=== PATIENT | male | born 1955 | race Caucasian/White ===

== ENCOUNTER 2021-10-18 10:46 | Inpatient (IN) | payer MEDICARE, SELFPAY ==
[2021-10-18] VITALS (13 sets, daily range): BP systolic 122–159; BP diastolic 63–89; PULSE 75–111; RESP 16–22; TEMP 36.8–37.7; O2SAT 93–98; BMI 38.1; BMI 40.1
--- NOTE | 2021-10-18 11:08 | EDS_ITS ---
HPI HPI - GI History of Present Illness Chief Complaint: GI Bleed Narrative Narrative: Patient presents with rectal bleeding that he has had for the last few days. He relates remote history of bleeding ulcer 40 years ago. He does not take blood thinners and has not seen a primary care physician in quite some time. He picked up his grandkids from the airport on Thursday evening and Thursday morning, 2 days ago, he had his first episode of dark brown/bloody bowel movement. Since then, he states today he had a few episodes of bright red blood with bowel movements. He feels lightheaded. He denies any abdominal pain. No fevers or chills. No exacerbating or alleviating factors. He does not take any blood thinners or any medications currently. He states he is concerned because he has bright red blood per rectum with bowel movements. He denies other bleeding diathesis. [facility] Medical History (Updated 10/18/21 @ 14:06 by Horace Sandoval MD) Bleeding ulcer Home Medications NK 10/18/21 [History Last Taken Unknown] Allergy/AdvReac Type Severity Reaction Status Date / Time Penicillins Allergy Other Verified 10/18/21 10:50 Social History Smoking Status: Never smoker ROS ROS ED ROS Narrative Constitutional: No fever, no chills. HEENT: No sore throat. No neck pain. No loss of vision. No rhinorrhea. Cardiovascular: No chest pain. No palpitations. No pedal edema. Respiratory: No cough, no shortness of breath. Abdominal: No abdominal pain. No nausea. No vomiting. Bright red blood per rectum with bowel movements over the last few days. Genitourinary: No dysuria. No hematuria. Musculoskeletal: No myalgias. No arthralgias. Neurologic: No headaches. No dizziness. No lightheadedness. Skin: No rash. No change in color. Psychiatric: No depression. No anxiety. EXAM Physical Exam Narrative Exam Narrative: Afebrile. Vital signs noted. HEENT: Normocephalic. Atraumatic. PERRL, EOMI. Neck soft and supple. No point tenderness or step off. Cardiovascular: Regular rate and rhythm. No murmurs, rubs, or gallops appreciated. Respiratory: No tachypnea. Lungs clear to auscultation bilaterally. Gastrointestinal: Abdomen soft, nontender, with normoactive bowel sounds. No rebound or guarding. Neurological: Awake. Alert. Nonfocal, nonlateralizing. Skin: No rash. Normal color. No pallor. Musculoskeletal: No pedal edema. Full range of motion extremities. Const Vital Signs: 10/18/21 10:46 10/18/21 12:00 10/18/21 13:48 Temperature 98.5 F Temperature Source Temporal Pulse Rate 111 H 82 Pulse Rate [Lying] 82 Pulse Rate [Sitting (for 1 minute prior to obtaining)] 83 Pulse Rate [Standing (for 1 minute prior to obtaining)] 91 Respiratory Rate 18 22 H Blood Pressure 122/67 H 139/84 H Blood Pressure [Lying] 148/71 H Blood Pressure [Sitting (for 1 minute prior to obtaining)] 142/76 H Blood Pressure [Standing (for 1 minute prior to obtaining)] 138/72 H Blood Pressure Mean 85 102 Blood Pressure Mean [Lying] 96 Blood Pressure Mean [Sitting (for 1 minute prior to obtaining)] 98 Blood Pressure Mean [Standing (for 1 minute prior to obtaining)] 94 Pulse Ox 98 96 Oxygen Delivery Method Room Air Room Air MDM MDM MDM Narrative Medical decision making narrative: Basic laboratories will be checked. I do not feel that coagulation studies are indicated as he does not take Coumadin. Orthostatics are negative. Normal white count of 10.7. Hemoglobin low at 8.0. Electrolyte panel is grossly unremarkable except for chloride elevated at 112, BUN is also elevated at 29 with a creatinine of 1.13 consistent with GI bleeding. Urinalysis shows WBC count 10-25 with leukocyte Estrace 500. Negative ketones. This will be sent for culture and I will defer antibiotics. His chaperoned rectal examination did show dark blood with a small amount of bright red blood per rectum but no active hemorrhaging. I was able to discuss patient with Dr. Chris with gastroenterology who states that the patient can be admitted here. I then spoke with Dr. Deras for admission to the medical surgical floor. Patient is in stable condition. Lab Data Labs: Laboratory Results - last 24 hr 10/18/21 10/18/21 10/18/21 11:10 11:10 11:30 WBC 10.7 RBC 2.68 L Hgb 8.0 L Hct 24.2 L MCV 90.3 MCH 29.9 MCHC 33.1 RDW Std Deviation 43.1 RDW Coeff of [place] 13.2 Plt Count 207 MPV 10.0 Immature Gran % (Auto) 0.700 Neut % (Auto) 70.5 H Lymph % (Auto) 21.7 [place] % (Auto) 6.5 Eos % (Auto) 0.2 Baso % (Auto) 0.4 Absolute Neuts (auto) 7.6 Absolute Lymphs (auto) 2.33 Nucleated RBC % 0.3 Sodium 142 Potassium 3.8 Chloride 112 H Carbon Dioxide 22.0 Anion Gap 8 BUN 29 H Creatinine 1.13 Estim Creat Clear Calc 70.58 Est GFR (MDRD) Af Amer 83 Est GFR (MDRD) Non-Af 69 BUN/Creatinine Ratio 25.7 H Glucose 163 H Calcium 9.1 Total Bilirubin 0.40 AST 14 L ALT 23 Alkaline Phosphatase 45 Total Protein 6.6 Albumin 3.3 Globulin 3.3 Albumin/Globulin Ratio 1.0 Urine Color Yellow Urine Clarity Sl. Cloudy Urine pH 5.0 Ur Specific [place] 1.025 Urine Protein 30 H Urine Glucose (UA) Normal Urine Ketones Negative Urine Occult Blood 10 H Urine Nitrite Negative Urine Bilirubin 1 H Urine Urobilinogen Normal Ur Leukocyte Esterase 500 H Urine RBC 0-5 SEEN Urine WBC 10-25 SEEN Ur Squamous Epith Cells 0 SEEN Urine Bacteria 1+ Hyaline Casts 5-10 SEEN Urine Mucus 3+ Discharge Plan Dx/Rx/DC Orders Clinical Impression: GI bleeding, Anemia Disposition Disposition: Acute Care Hospital [facility]
[2021-10-18 11:19] LABS: Absolute Lymphocyte Count 2.33 X10^3/uL (0.83-4.51); Absolute Neutrophil Count 7.6 X10^3/uL (2.0-7.7); Basophil# 0.04 X10^3/uL; Basophil% 0.4 % (0-1); Eosinophil# 0.02 X10^3/uL; Eosinophils% 0.2 % (0-5); Hematocrit 24.2 % (40-54); Lymphocyte # 2.33 X10^3/ul (0.83-4.51); Lymphocyte % 21.7 % (19-41); Mean Corp Hgb Conc 33.1 g/dL (32-36); Mean Corpuscular Hgb 29.9 pg (27.0-32.0); Mean Corpuscular Volume 90.3 fL (80-94); Monocyte% 6.5 % (0-10); NRBC Flagged by Analyzer 0.3 % (0-5); Neutrophil # 7.56 X10^3/uL (2.7-7.7); Neutrophil % 70.5 % (47-70); Platelet Count 207 K/mm3 (150-450); RBC Distribution Width CV 13.2 % (11.6-14.6); RBC Distribution Width SD 43.1 fl (35.1-43.9); Red Blood Count 2.68 M/mm3 (4.6-6.2); White Blood Count 10.7 K/mm3 (4.4-11.0)
[2021-10-18] MEDS: 0.9% Normal Saline 1,000 ML 999 ML IV (11:29)
[2021-10-18 11:34] LABS: AST(SGOT) 14 U/L (15-37); Alanine Aminotransfer ALT/SGPT 23 U/L (16-61); Albumin, Serum 3.3 g/dL (3.2-5.0); Alkaline Phosphatase 45 U/L (45-117); Anion Gap 8 (5-15); BUN 29 mg/dL (7-18); BUN/Creat Ratio 25.7 RATIO (10-20); Calcium,Total 9.1 mg/dL (8.5-10.1); Chloride 112 mmol/L (98-107); Creatinine, Serum 1.13 mg/dL (0.70-1.30); EST Glomerular Filtration Rate 69 mL/min (>60); Est Glom Filt Rate - Afr Amer 83 mL/min (>60); Estimated Creatinine Clearance 70.58 ml/min; Globulin 3.3 g/dL (2.2-4.2); Glucose 163 mg/dL (74-106); Potassium 3.8 mmol/L (3.5-5.1); Protein, Total 6.6 g/dL (6.4-8.2); Sodium Level 142 mmol/L (136-145)
[2021-10-18 11:36] LABS: Squamous Epithelial Cells - UA 0 SEEN /hpf (0-5)
[2021-10-18 11:57] LABS: Color, Urine Yellow (Yellow); Glucose, Dipstick Normal (Normal); Ketone-Dipstick Negative (Negative); Leukocyte Esterase-Dipstick 500 /ul (Negative); Nitrite-Dipstick Negative (Negative); Occult Blood-Urine 10 /ul (Negative); Protein-Dipstick 30 mg/dl (Negative); Specific Gravity, Urine 1.025 (1.002-1.030); Urine Clarity Sl. Cloudy (Clear); Urine Urobilinogen Normal (Normal)
[2021-10-18 12:02] LABS: Urine Bilirubin Dipstick 1 mg/dL (Negative)
[2021-10-18 12:07] LABS: Hyaline Cast 5-10 SEEN /lpf (0-5); Mucous, Urine 3+ /hpf (<or=2+)
[2021-10-18 12:09] LABS: Red Blood Cells-Urine 0-5 SEEN /hpf (0-5); White Blood Cells 10-25 SEEN /hpf (0-5)
[2021-10-18 12:12] LABS: Bacteria 1+ /hpf (None Seen)
--- NOTE | 2021-10-18 14:44 | HP.PCM.HOS_ITS ---
[facility] - General General Date of Admission: 10/18/21 Chief Complaint: blood in stool HPI Narrative JAYE JAMES, is a 66 M who presents with 2-day history of blood in stool. Patient began started having blood in stool this past Thursday and has been intermittent but much more frequent as of late. States that it is dark and may have clots in it. Denies any NSAID use. He did have a history of a bleeding ulcer back in 1980 but has had none since. He has never had a colonoscopy. Patient was seen in the emergency room as he presented because he was just feeli ng weak. Patient normally is very active. His hemoglobin was noted to be 8. No prior labs to compare to. [facility] Medical History Bleeding ulcer Home Medications NK 10/18/21 [History Last Taken Unknown] Allergy/AdvReac Type Severity Reaction Status Date / Time Penicillins Allergy Other Verified 10/18/21 10:50 Social History (Updated 10/18/21 @ 14:[address] Praveen Deras DO) Smoking Status: Never smoker alcohol intake: never substance use type: does not use ROS ROS Narrative No dysuria. No hematuria. Nausea and dry heaves but no emesis. All review of systems were negative except as mentioned above in the history of present illness and the other review of systems. Vital Signs Vital Signs Vital Signs: 10/18/21 10:46 10/18/21 12:00 10/18/21 13:48 Temperature 36.9 C Temperature Source Temporal Pulse Rate 111 H 82 Pulse Rate [Lying] 82 Pulse Rate [Sitting (for 1 minute prior to obtaining)] 83 Pulse Rate [Standing (for 1 minute prior to obtaining)] 91 Respiratory Rate 18 22 H Blood Pressure 122/67 H 139/84 H Blood Pressure [Lying] 148/71 H Blood Pressure [Sitting (for 1 minute prior to obtaining)] 142/76 H Blood Pressure [Standing (for 1 minute prior to obtaining)] 138/72 H Blood Pressure Mean 85 102 Blood Pressure Mean [Lying] 96 Blood Pressure Mean [Sitting (for 1 minute prior to obtaining)] 98 Blood Pressure Mean [Standing (for 1 minute prior to obtaining)] 94 Pulse Ox 98 96 Oxygen Delivery Method Room Air Room Air Weight Weight: 127.459 kg Body Mass Index (BMI) 38.1 Physical Exam Const alert and no apparent distress HEENT normocephalic and head/scalp atraumatic Neck no lymphadenopathy and supple Resp normal respiratory effort, no retractions, no use of accessory muscles and clear to auscultation bilaterally Cardio regular rate, regular rhythm, S1 normal heart sound and S2 normal heart sound GI normal to inspection, nondistended, normoactive bowel sounds, soft to palpation, non-tender and non-distended Neuro oriented x3 Results Lab / Micro Data Attestation: I reviewed the patient's lab results. Result Diagrams: 10/18/21 11:10 10/18/21 11:10 Labs: Laboratory Results - last 24 hr 10/18/21 11:10: WBC 10.7, RBC 2.68 L, Hgb 8.0 L, Hct 24.2 L, MCV 90.3, MCH 29.9, MCHC 33.1, RDW Std Deviation 43.1, RDW Coeff of [place] 13.2, Plt Count 207, MPV 10.0, Immature Gran % (Auto) 0.700, Neut % (Auto) 70.5 H, Lymph % (Auto) 21.7, [place] % (Auto) 6.5, Eos % (Auto) 0.2, Baso % (Auto) 0.4, Absolute Neuts (auto) 7.6, Absolute Lymphs (auto) 2.33, Nucleated RBC % 0.3 10/18/21 11:10: Sodium 142, Potassium 3.8, Chloride 112 H, Carbon Dioxide 22.0, Anion Gap 8, BUN 29 H, Creatinine 1.13, Estim Creat Clear Calc 70.58, Est GFR (MDRD) Af Amer 83, Est GFR (MDRD) Non-Af 69, BUN/Creatinine Ratio 25.7 H, Glucose 163 H, Calcium 9.1, Total Bilirubin 0.40, AST 14 L, ALT 23, Alkaline Phosphatase 45, Total Protein 6.6, Albumin 3.3, Globulin 3.3, Albumin/Globulin Ratio 1.0 10/18/21 11:30: Urine Color Yellow, Urine Clarity Sl. Cloudy, Urine pH 5.0, Ur Specific [place] 1.025, Urine Protein 30 H, Urine Glucose (UA) Normal, Urine Ketones Negative, Urine Occult Blood 10 H, Urine Nitrite Negative, Urine Bilirubin 1 H, Urine Urobilinogen Normal, Ur Leukocyte Esterase 500 H, Urine RBC 0-5 SEEN, Urine WBC 10-25 SEEN, Ur Squamous Epith Cells 0 SEEN, Urine Bacteria 1+, Hyaline Casts 5-10 SEEN, Urine Mucus 3+ Micro: Microbiology 10/18/21 13:34 Stool Stool Occult Blood (DALI) - Final Occult Blood Positive Assessment & Plan Assessment/Plan (1) GI bleeding: QUALIFIERS: GI bleed type/associated pathology: unspecified gastrointestinal hemorrhage type Qualified Code(s): K92.2 - Gastrointestinal hemorrhage, unspecified PLAN: Unclear etiology but suspect PUD given his remote history of bleeding duodenal ulcer Plan: * IV pantoprazole 40 mg twice daily * GI consultation for EGD, notify Dr. Chris. (2) Anemia: PLAN: Secondary to above. Suspected acute blood loss. No baseline labs to compare to but given his symptomatology and his bleeding I suspect his hemoglobin is lower than his baseline Plan: * Monitor H&H every 6 hours for next 24 hours * Transfuse if hemoglobin less than 7 PLAN: Plan VTE prophylaxis with SCDs. Chemical prophylaxis contraindicated given the GI bleed. is present at bedside. All questions were answered.
[2021-10-18] MEDS: 0.9% Normal Saline 1,000 ML 150 ML IV (16:02)
[2021-10-18 17:19] LABS: Hematocrit 20.6 % (40-54); Hemoglobin 6.9 g/dL (13.0-16.5)
--- NOTE | 2021-10-18 17:44 | CON.PCM_ITS ---
Assessment & Plan Assessment/Plan (1) GI bleeding: QUALIFIERS: GI bleed type/associated pathology: unspecified gastrointestinal hemorrhage type Qualified Code(s): K92.2 - Gastrointestinal hemorrhage, unspecified PLAN: The differential diagnosis for his acute GI bleed could be an upper GI bleed secondary to peptic ulcer disease, AVM, neoplasia with rapid transit upper versus lower GI bleed secondary to AVMs, diverticular bleed, neoplasia, hemorr hoidal bleed. Patient undergoing EGD and colonoscopy with evaluation of the lower GI tract and upper GI tract. He was explained alternatives, risk, benefits including outstanding bleeding, infection, sepsis, perforation, need for surgery. He will have an ASA of 3. HPI Consult Data Date of Consult: 10/19/21 HPI Narrative Reason for Consultation: GI bleed HPI Narrative: JAYE JAMES, is a 66 M who presents with lower GI bleeding for the last few days.? He relates remote history of bleeding ulcer 40 years ago.? He does not take blood thinners and has not seen a primary care physician in quite some time.? He picked up his grandkids from the airport on Thursday evening and Thursday morning, 2 days ago, he had his first episode of dark brown/bloody bowel movement.? Since then, he states today he had a few episodes of bright red blood with bowel movements.? He feels lightheaded.? He denies any abdominal pain.? No fevers or chills.? No exacerbating or alleviating factors.? He does not take any blood thinners or any medications currently.? He states he is concerned because he has bright red blood per rectum with bowel movements.? He denies other bleeding diathesis. His BUN to creatinine ratio in the ED 60-1.1, his hemoglobin was 8 and currently it is down to 6.9. All 16 review of systems are negative except those pertinent positive mentioned HPI [facility] Medical History (Updated 10/19/21 @ 07:[address] Praveen Deras DO) Bleeding ulcer History of stress test Hypertension Irregular heartbeat Ulcer Home Medications NK 10/18/21 [History Last Taken Unknown] Allergy/AdvReac Type Severity Reaction Status Date / Time Penicillins Allergy Other Verified 10/18/21 10:50 Social History (Updated 10/18/21 @ 14:[address] Praveen Deras DO) Smoking Status: Never smoker alcohol intake: never substance use type: does not use ROS ROS Narrative No dysuria. No hematuria. Nausea and dry heaves but no emesis. All review of systems were negative except as mentioned above in the history of present illness and the other review of systems. Physical Exam Const alert and no apparent distress HEENT normocephalic and head/scalp atraumatic Neck no lymphadenopathy and supple Resp normal respiratory effort, no retractions, no use of accessory muscles and clear to auscultation bilaterally Cardio regular rate, regular rhythm, S1 normal heart sound and S2 normal heart sound GI normal to inspection, nondistended, normoactive bowel sounds, soft to palpation, non-tender and non-distended Neuro oriented x3 Lab / Micro Data Result Diagrams: 10/19/21 05:40 10/19/21 05:40 Labs: Laboratory Results - last 24 hr 10/18/21 11:10: WBC 10.7, RBC 2.68 L, Hgb 8.0 L, Hct 24.2 L, MCV 90.3, MCH 29.9, MCHC 33.1, RDW Std Deviation 43.1, RDW Coeff of [place] 13.2, Plt Count 207, MPV 10.0, Immature Gran % (Auto) 0.700, Neut % (Auto) 70.5 H, Lymph % (Auto) 21.7, [place] % (Auto) 6.5, Eos % (Auto) 0.2, Baso % (Auto) 0.4, Absolute Neuts (auto) 7.6, Absolute Lymphs (auto) 2.33, Nucleated RBC % 0.3 10/18/21 11:10: Sodium 142, Potassium 3.8, Chloride 112 H, Carbon Dioxide 22.0, Anion Gap 8, BUN 29 H, Creatinine 1.13, Estim Creat Clear Calc 70.58, Est GFR (MDRD) Af Amer 83, Est GFR (MDRD) Non-Af 69, BUN/Creatinine Ratio 25.7 H, Glucose 163 H, Calcium 9.1, Total Bilirubin 0.40, AST 14 L, ALT 23, Alkaline Phosphatase 45, Total Protein 6.6, Albumin 3.3, Globulin 3.3, Albumin/Globulin R atio 1.0 10/18/21 11:30: Urine Color Yellow, Urine Clarity Sl. Cloudy, Urine pH 5.0, Ur Specific [place] 1.025, Urine Protein 30 H, Urine Glucose (UA) Normal, Urine Ketones Negative, Urine Occult Blood 10 H, Urine Nitrite Negative, Urine Bilirubin 1 H, Urine Urobilinogen Normal, Ur Leukocyte Esterase 500 H, Urine RBC 0-5 SEEN, Urine WBC 10-25 SEEN, Ur Squamous Epith Cells 0 SEEN, Urine Bacteria 1+, Hyaline Casts 5-10 SEEN, Urine Mucus 3+ 10/18/21 17:10: Hgb 6.9 L, Hct 20.6 L Micro: Microbiology 10/18/21 13:34 Stool Stool Occult Blood (DALI) - Final Occult Blood Positive Charges/Coding Visit Charges Inpatient E&M: 59780 Init Hosp L2
[2021-10-18] MEDS: Bisacodyl 5 MG Tablet 20 MG PO (19:51)
[2021-10-18] MEDS: Electrolyte Solution/Peg's 4000 ML PO (19:52)
[2021-10-18] MEDS: Ondansetron 4 MG/2 ML Vial IV (23:55)
[2021-10-18] MEDS: 0.9% Saline Lock 10 ML Syringe IV (23:56)
[2021-10-19] VITALS (14 sets, daily range): BP systolic 110–162; BP diastolic 49–84; PULSE 64–86; RESP 16–18; TEMP 36.2–37.3; O2SAT 87–99; BMI 40.1
--- NOTE | 2021-10-19 | ESO_PTH ---
PATIENT: JAYE JAMES LOC: MS3 U#:[id number] AGE/SX: 66/M ROOM: ME312 RE10/18/[address]: Dr. Praveen Deras, : 1955 BED: 1 DIS: 10/19/2021 SPEC #: [id number] RECD: 10/19/21 10:29 STATUS: LUMA BEASLEYVeronique #: [id number] LAURA: 10/19/21 00:[address]: Ellis Chris DEPT: SURGICAL PATHOLOGY RECD BY: Vidal Calloway ENTERED: 10/21/21 12:30 SP TYPE: ESOPH BX OTHR DR: Dr. Praveen Deras, DO No Primary Care Phys Tissues: A - Esophagus, NOS B - Ascending colon C - SPLENIC FLEXURE Procedures: Special Stain Group II Surgery Specimen Level IV Alcian Blue/PAS (control) Comments: @ Ordering doctor for SUIV edited from to @ by DERREK at 10/21/21 1441 @ Submitting doctor edited from to @ by RGOOD at 10/21/21 1445 HEADER OPERATION: Colonoscopy with polypectomy, EGD with biopsy (MAC) PRE-OP DIAGNOSIS: GI bleeding TISSUE SUBMITTED: A ? Distal esophagus, B - Ascending colon, C ? Splenic flexure MICROSCOPIC DIAGNOSIS A. 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 Chronic inflammation. Negative for dysplasia. See comment. B. Ascending colon, biopsy: Fragments of tubular adenoma. Fragments of fecal material. C. Splenic flexure, biopsy: Fragments of tubular adenoma. Fragments of fecal material. SJ:abad 10/22/2021 COMMENT A. Alcian blue/PAS stain with matched control is used in the evaluation of the specimen. Immunohistochemistry ([id number]) for P53 and Ki-67 will be performed and results will be reported separately. MICROSCOPIC DESCRIPTION Slides are reviewed. GROSS DESCRIPTION A - Received in fixative is one container labeled with the patient's name and designated distal esophagus. The specimen consists of multiple irregular fragments of light diana soft tissue that in aggregate measure 0.8 x 0.3 x 0.1 cm. The specimen is totally submitted in one cassette. B - Received in fixative is one container labeled with the patient's name and designated ascending colon. The specimen consists of multiple irregular fragments of diaan soft tissue mixed with blood clot and fecal material that in aggregate measure 2 x 2.5 x 0.3 cm. The specimen is totally submitted in one cassette. C - Received in fixative is one container labeled with the patient's name and designated splenic flexure. The specimen consists of multiple irregular fragments of light diana soft tissue that in aggregate measure 1.8 x 0.5 x 0.2 cm. The specimen is totally submitted in one cassette. / SJ:rg 10/21/2021 TC:1 CPT: 79230 x3, 70116
--- NOTE | 2021-10-19 | IMM_PTH ---
PATIENT: JAYE JAMES LOC: MS3 U#:[id number] AGE/SX: 66/M ROOM: VT312 RE10/18/[address]: Dr. Praveen Deras, : 1955 BED: 1 DIS: 10/19/2021 SPEC #: [id number] RECD: 10/22/21 12:47 STATUS: LUMA REVeronique #: [id number] LAURA: 10/19/21 00:[address]: Ellis Chris DEPT: IMMUNOHISTOCHEMISTRY RECD BY: Teresita Dean ENTERED: 10/22/21 12:49 SP TYPE: IMMUNO OTHR DR: Dr. Praveen Deras, DO No Primary Care Phys Tissues: A - Esophageal mucous membrane Procedures: P53 (initial) KI-67 (add) PHYSICIAN & INSTITUTION [place] [id number] SPECIMEN INFORMATION: Tissue Source: A ? Distal esophagus Clinical Info: GI bleeding Specimen Number: [id number] CPT code: 66963, 99854 METHODOLOGY: Deparaffinized sections of prefer/formalin-fixed tissue or PAP/DQ stained slides are incubated with monoclonal/polyclonal antibodies/oligonucleotide probes. Localization is made via biotin free immunoperoxidase method. Appropriate controls are performed and reacted as expected. Results on target cell population are indicated in the following table: RESULTS: ANTIBODY / CLONE RESULT Block A P53 (DO-7) negative Ki-67 (30-9) positive, very low These tests were developed and their performance characteristics determined by [facility]. They may not have been cleared or approved by the U.S. Food and Drug Administration. The FDA has determined that such clearance or approval is not necessary. The above immunohistochemical/dualISH markers are ordered and reviewed by the Pathologist. INTERPRETATION: A. Distal esophagus, biopsy: Negative for dysplasia. ROHIT:abad 10/23/2021
[2021-10-19 01:08] LABS: Hematocrit 20.7 % (40-54)
[2021-10-19] MEDS: 0.9% Normal Saline 1,000 ML 150 ML IV (02:02)
--- NOTE | 2021-10-19 05:55 | EKG12_ITS ---
Test Reason : AM EKG Blood Pressure : / mmHG Vent. Rate : 076 BPM Atrial Rate : 076 BPM P-R Int : 170 ms QRS Dur : 104 ms QT Int : 412 ms P-R-T Axes : 047 003 162 degrees QTc Int : 463 ms Normal sinus rhythm T wave abnormality, consider lateral ischemia Abnormal ECG Confirmed by REHANA NOYOLA, EVAN ([id number]), news videotape editor GINA DOBSON ([id number]) on 10/22/2021 1:09:49 PM Referred By: DR AHUJA Confirmed By:EVAN KIMBALL MD
[2021-10-19 06:29] LABS: Absolute Lymphocyte Count 2.95 X10^3/uL (0.83-4.51); Absolute Neutrophil Count 6.2 X10^3/uL (2.0-7.7); Basophil# 0.03 X10^3/uL; Basophil% 0.3 % (0-1); Eosinophil# 0.09 X10^3/uL; Eosinophils% 0.9 % (0-5); Hematocrit 19.7 % (40-54); Hemoglobin 6.4 g/dL (13.0-16.5); Lymphocyte # 2.95 X10^3/ul (0.83-4.51); Lymphocyte % 28.6 % (19-41); Mean Corp Hgb Conc 32.5 g/dL (32-36); Mean Corpuscular Hgb 29.9 pg (27.0-32.0); Mean Corpuscular Volume 92.1 fL (80-94); Mean Platelet Vol. 10.2 fl (6.2-12.0); Monocyte# 0.97 X10^3/uL; Monocyte% 9.4 % (0-10); NRBC Flagged by Analyzer 0.4 % (0-5); Neutrophil # 6.18 X10^3/uL (2.7-7.7); Neutrophil % 59.8 % (47-70); Platelet Count 161 K/mm3 (150-450); RBC Distribution Width CV 13.8 % (11.6-14.6); RBC Distribution Width SD 45.3 fl (35.1-43.9); Red Blood Count 2.14 M/mm3 (4.6-6.2); White Blood Count 10.3 K/mm3 (4.4-11.0)
[2021-10-19 06:41] LABS: International Normalized Ratio 1.2; Prothrombin Time (Protime)PT. 15.2 SECONDS (11.7-14.9)
[2021-10-19 06:42] LABS: Partial Thromboplast Time 26.9 Seconds (24.1-36.2)
[2021-10-19 06:54] LABS: Anion Gap 3 (5-15); BUN 20 mg/dL (7-18); BUN/Creat Ratio 23.9 RATIO (10-20); Calcium,Total 7.9 mg/dL (8.5-10.1); Chloride 113 mmol/L (98-107); Creatinine, Serum 0.84 mg/dL (0.70-1.30); EST Glomerular Filtration Rate 98 mL/min (>60); Est Glom Filt Rate - Afr Amer 118 mL/min (>60); Estimated Creatinine Clearance 92.13 ml/min; Glucose 114 mg/dL (74-106); Potassium 3.9 mmol/L (3.5-5.1); Sodium Level 142 mmol/L (136-145)
--- NOTE | 2021-10-19 06:57 | NURSING ---
Pt has been passing a lot of blood with his bowel prep. It is dark red. Hgb dropped. Physican notified and another unit of blood ordered.
--- NOTE | 2021-10-19 07:11 | PN.HOSP_ITS ---
Subjective Subjective Before the colonoscopy patient was still having hematochezia. Since has had no further hematochezia. Objective Data Objective Data Vital Signs: Vital Signs Temp Pulse Resp BP Pulse Ox O2 Del Method 36.9 C 69 18 162/65 H 94 Room Air 10/19/21 05:30 10/19/21 05:30 10/19/21 05:30 10/19/21 05:30 10/19/21 05:30 10/19/21 05:30 Oxygen Delivery Method Room Air Weight: 130.379 kg Body Mass Index (BMI) 40.1 Intake & Output: Intake and Output for Last 24 Hours 10/17/21 10/18/21 10/19/21 23:59 23:59 23:59 Intake Total 3232.5 / 3342.5 387.5 / 387.5 Balance 3232.5 / 3342.5 387.5 / 387.5 Lab / Micro Data Result Diagrams: 10/19/21 05:40 10/19/21 05:40 Labs: Laboratory Results - last 24 hr 10/18/21 11:10: WBC 10.7, RBC 2.68 L, Hgb 8.0 L, Hct 24.2 L, MCV 90.3, MCH 29.9, MCHC 33.1, RDW Std Deviation 43.1, RDW Coeff of [place] 13.2, Plt Count 207, MPV 10.0, Immature Gran % (Auto) 0.700, Neut % (Auto) 70.5 H, Lymph % (Auto) 21.7, Gilli[place] % (Auto) 6.5, Eos % (Auto) 0.2, Baso % (Auto) 0.4, Absolute Neuts (auto) 7.6, Absolute Lymphs (auto) 2.33, Nucleated RBC % 0.3 10/18/21 11:10: Sodium 142, Potassium 3.8, Chloride 112 H, Carbon Dioxide 22.0, Anion Gap 8, BUN 29 H, Creatinine 1.13, Estim Creat Clear Calc 70.58, Est GFR (MDRD) Af Amer 83, Est GFR (MDRD) Non-Af 69, BUN/Creatinine Ratio 25.7 H, Glucose 163 H, Calcium 9.1, Total Bilirubin 0.40, AST 14 L, ALT 23, Alkaline Phosphatase 45, Total Protein 6.6, Albumin 3.3, Globulin 3.3, Albumin/Globulin Ratio 1.0 10/18/21 11:30: Urine Color Yellow, Urine Clarity Sl. Cloudy, Urine pH 5.0, Ur Specific [place] 1.025, Urine Protein 30 H, Urine Glucose (UA) Normal, Urine Ketones Negative, Urine Occult Blood 10 H, Urine Nitrite Negative, Urine Bilirubin 1 H, Urine Urobilinogen Normal, Ur Leukocyte Esterase 500 H, Urine RBC 0-5 SEEN, Urine WBC 10-25 SEEN, Ur Squamous Epith Cells 0 SEEN, Urine Bacteria 1+, Hyaline Casts 5-10 SEEN, Urine Mucus 3+ 10/18/21 17:10: Hgb 6.9 L, Hct 20.6 L 10/18/21 17:45: Blood Type A POSITIVE, Antibody Screen NEGATIVE, Crossmatch See Detail 10/19/21 00:48: Hgb 7.0 L, Hct 20.7 L 10/19/21 05:40: WBC 10.3, RBC 2.14 L, Hgb 6.4 L, Hct 19.7 L, MCV 92.1, MCH 29.9, MCHC 32.5, RDW Std Deviation 45.3 H, RDW Coeff of [place] 13.8, Plt Count 161, MPV 10.2, Immature Gran % (Auto) 1.000 H, Neut % (Auto) 59.8, Lymph % (Auto) 28.6, [place] % (Auto) 9.4, Eos % (Auto) 0.9, Baso % (Auto) 0.3, Absolute Neuts (auto) 6.2, Absolute Lymphs (auto) 2.95, Nucleated RBC % 0.4 10/19/21 05:40: Sodium 142, Potassium 3.9, Chloride 113 H, Carbon Dioxide 26.0, Anion Gap 3 L, BUN 20 H, Creatinine 0.84, Estim Creat Clear Calc 92.13, Est GFR (MDRD) Af Amer 118, Est GFR (MDRD) Non-Af 98, BUN/Creatinine Ratio 23.9 H, Glucose 114 H, Calcium 7.9 L 10/19/21 05:40: PT 15.2 H, INR 1.2, APTT 26.9 Micro: Microbiology 10/18/21 13:34 Stool Stool Occult Blood (DALI) - Final Occult Blood Positive Physical Exam Const alert and no apparent distress Resp normal respiratory effort, no retractions, no use of accessory muscles and clear to auscultation bilaterally Cardio regular rate, regular rhythm, S1 normal heart sound and S2 normal heart sound GI normal to inspection, nondistended, normoactive bowel sounds Assessment & Plan Assessment/Plan (1) GI bleeding: QUALIFIERS: GI bleed type/associated pathology: unspecified gastrointestinal hemorrhage type Qualified Code(s): K92.2 - Gastrointestinal hemorrhage, unspecified PLAN: EGD was unremarkable Colonoscopy showed diverticulosis in the rectosigmoid colon, 10 1 to 2 mm polyps in the sigmoid colon that was removed with a hot snare. 3 bleeding angiodysplastic lesions that were treated with heater probe. Due to the angiodysplastic lesions which were treated with heater probe. If no further bleeding and hemoglobin stable patient can be discharged. (2) Anemia: QUALIFIERS: Anemia type: other cause Qualified Code(s): D64.89 - Other specified anemias PLAN: Secondary to above. Acute blood loss. No baseline labs to compare to but given his symptomatology and his bleeding I suspect his hemoglobin is lower than his baseline Plan: * Monitor H&H every 6 hours for next 24 hours * Transfuse 1 unit on the . * Hemoglobin 6.4 and will transfuse another. * We will start the patient on iron PLAN: Plan VTE prophylaxis with SCDs. Chemical prophylaxis contraindicated given the GI bleed. is present at bedside. All questions were answered. Plan is to monitor the patient if his hemoglobin remained stable and no further bleeding then he can be discharged home and follow-up with gastroenterology as outpatient. Charges/Coding Visit Charges Inpatient E&M: 42918 Subs Hosp L2
--- NOTE | 2021-10-19 09:16 | OP.CCLET_ITS ---
12/05/2021 No Primary Care Physician Re : Upper GI endoscopy procedure for Chris Major Dear Care Physician This procedure was performed on Tuesday, October 19, 2021. My impressions and recommendations are as follows: Impressions : - Z-line irregular, 39 cm from the incisors. Biopsied. - Small hiatal hernia. - No gross lesions in the second portion of the duodenum. Recommendations : - Discharge patient to home. - Resume previous diet. - Continue present medications. - Await pathology results. - Repeat upper endoscopy in 1 year for surveillance. - Return to GI office in 2 weeks. My findings are described in the full procedure note, which is enclosed. If I can be of further assistance, please feel free to contact me at . Sincerely, Ellis Chris, 10/19/2021 9:16:02 AM This report has been signed electronically.
--- NOTE | 2021-10-19 09:16 | OP.EGD_ITS ---
Patient Name: Chris Major Procedure Date: 10/19/2021 7:25 AM Date of : 1955 Age: 66 Procedure: Upper GI endoscopy Indications: Iron deficiency anemia, Hematochezia, Melena Providers: Ellis Chris DO Medicines: Monitored Anesthesia Care Patient Profile: This is a 66 year old male. Refer to note in patient chart for documentation of history and physical. Patient has symptoms of acute heartburn and acute nausea. Complications: No immediate complications. Procedure: Pre-Anesthesia Assessment: - Prior to the procedure, a History and Physical was performed, and patient medications and allergies were reviewed. The risks and benefits of the procedure and the sedation options and risks were discussed with the patient. All questions were answered and informed consent was obtained. Patient identification and proposed procedure were verified by the physician in the pre-procedure area. Mental Status Examination: alert and oriented. Airway Examination: normal oropharyngeal airway and neck mobility. Respiratory Examination: clear to auscultation. CV Examination: normal. Prophylactic Antibiotics: The patient does not require prophylactic antibiotics. Prior Anticoagulants: The patient has taken no previous anticoagulant or antiplatelet agents. ASA Grade Assessment: II - A patient with mild systemic disease. After reviewing the risks and benefits, the patient was deemed in satisfactory condition to undergo the procedure. The anesthesia plan was to use moderate sedation / analgesia (conscious sedation). Immediately prior to administration of medications, the patient was re-assessed for adequacy to receive sedatives. The heart rate, respiratory rate, oxygen saturations, blood pressure, adequacy of pulmonary ventilation, and response to care were monitored throughout the procedure. The physical status of the patient was re-assessed after the procedure. After obtaining informed consent, the endoscope was passed under direct vision. Throughout the procedure, the patient's blood pressure, pulse, and oxygen saturations were monitored continuously. The was introduced through the mouth, and advanced to the second part of duodenum. The upper GI endoscopy was accomplished without difficulty. The patient tolerated the procedure well. Scope In: 8:09:03 AM Scope Out: 8:13:38 AM Total Procedure Duration Time 0 hours 4 minutes 35 seconds Findings: The Z-line was irregular and was found 39 cm from the incisors. Biopsies were taken with a cold forceps for histology. Verification of patient identification for the specimen was done. Estimated blood loss was minimal. A small hiatal hernia was present. No other significant abnormalities were identified in a careful examination of the stomach. The cardia and gastric fundus were normal on retroflexion. No gross lesions were noted in the second portion of the duodenum. Impression: - Z-line irregular, 39 cm from the incisors. Biopsied. - Small hiatal hernia. - No gross lesions in the second portion of the duodenum. Recommendation: - Discharge patient to home. - Resume previous diet. - Continue present medications. - Await pathology results. - Repeat upper endoscopy in 1 year for surveillance. - Return to GI office in 2 weeks. Procedure Code(s): --- Professional --- 01324, Esophagogastroduodenoscopy, flexible, transoral; with biopsy, single or multiple CPT copyright 2017 [employer]. All rights reserved. The codes documented in this report are preliminary and upon reed or wind instrument repairer review may be revised to meet current compliance requirements. Ellis Chris DO 10/19/2021 9:16:02 AM This report has been signed electronically. Number of Addenda: 1 Note Initiated On: 10/19/2021 7:25 AM Addendum Number: 1 Addendum Date: 12/05/2021 6:11:43 AM MAC was used as sedation for this procedure. Ellis Chris DO 12/05/2021 6:11:47 AM This report has been signed electronically.
--- NOTE | 2021-10-19 09:21 | OP.COLON_ITS ---
Patient Name: Chris Major Procedure Date: 10/19/2021 8:13 AM Date of : 1955 Age: 66 Procedure: Colonoscopy Indications: This is the patient's first colonoscopy, Hematochezia Providers: Ellis Chris DO Medicines: Monitored Anesthesia Care Patient Profile: This is a 66 year old male. Refer to note in patient chart for documentation of history and physical. Patient has symptoms of acute heartburn and acute nausea. Last Colonoscopy: none. The patient's first colonoscopy is today. Complications: No immediate complications. Procedure: Pre-Anesthesia Assessment: - Prior to the procedure, a History and Physical was performed, and patient medications and allergies were reviewed. The risks and benefits of the procedure and the sedation options and risks were discussed with the patient. All questions were answered and informed consent was obtained. Patient identification and proposed procedure were verified by the physician in the pre-procedure area. Mental Status Examination: alert and oriented. Airway Examination: normal oropharyngeal airway and neck mobility. Respiratory Examination: clear to auscultation. CV Examination: normal. Prophylactic Antibiotics: The patient does not require prophylactic antibiotics. Prior Anticoagulants: The patient has taken no previous anticoagulant or antiplatelet agents. ASA Grade Assessment: II - A patient with mild systemic disease. After reviewing the risks and benefits, the patient was deemed in satisfactory condition to undergo the procedure. The anesthesia plan was to use moderate sedation / analgesia (conscious sedation). Immediately prior to administration of medications, the patient was re-assessed for adequacy to receive sedatives. The heart rate, respiratory rate, oxygen saturations, blood pressure, adequacy of pulmonary ventilation, and response to care were monitored throughout the procedure. The physical status of the patient was re-assessed after the procedure. After I obtained informed consent, the scope was passed under direct vision. Throughout the procedure, the patient's blood pressure, pulse, and oxygen saturations were monitored continuously. The Colonoscope was introduced through the anus and advanced to the terminal ileum. The colonoscopy was performed without difficulty. The patient tolerated the procedure well. The quality of the bowel preparation was good. Scope In: 8:17:45 AM Scope Out: 9:08:18 AM Total Procedure Duration Time 0 hours 50 minutes 33 seconds Findings: The perianal and digital rectal examinations were normal. Many small-mouthed diverticula were found in the recto-sigmoid colon, sigmoid colon and descending colon. Ten sessile polyps were found in the sigmoid colon, splenic flexure and ascending colon. The polyps were 1 to 2 mm in size. These polyps were removed with a hot snare. Resection and retrieval were complete. Verification of patient identification for the specimen was done. Estimated blood loss was minimal. Three medium-sized localized angiodysplastic lesions with bleeding were found in the sigmoid colon. Coagulation for hemostasis using heater probe was successful. Estimated blood loss was minimal. Impression: - Diverticulosis in the recto-sigmoid colon, in the sigmoid colon and in the descending colon. - Ten 1 to 2 mm polyps in the sigmoid colon, at the splenic flexure and in the ascending colon, removed with a hot snare. Resected and retrieved. - Three bleeding colonic angiodysplastic lesions. Treated with a heater probe. Recommendation: - Discharge patient to home. - Resume previous diet. - Continue present medications. - Await pathology results. - Repeat colonoscopy in 1 year for surveillance. Procedure Code(s): --- Professional --- 29010, 59, Colonoscopy, flexible; with control of bleeding, any method 14402, Colonoscopy, flexible; with removal of tumor(s), polyp(s), or other lesion(s) by snare technique CPT copyright 2017 [employer]. All rights reserved. The codes documented in this report are preliminary and upon branch retail executive review may be revised to meet current compliance requirements. Ellis Chris DO 10/19/2021 9:20:31 AM This report has been signed electronically. Number of Addenda: 1 Note Initiated On: 10/19/2021 8:13 AM Addendum Number: 1 Addendum Date: 12/05/2021 6:11:55 AM MAC was used as sedation for this procedure. Ellis Chris DO 12/05/2021 6:11:58 AM This report has been signed electronically.
--- NOTE | 2021-10-19 09:21 | OP.CCLET_ITS ---
12/05/2021 No Primary Care Physician Re : Colonoscopy procedure for Chris Major Dear Care Physician This procedure was performed on Tuesday, October 19, 2021. My impressions and recommendations are as follows: Impressions : - Diverticulosis in the recto-sigmoid colon, in the sigmoid colon and in the descending colon. - Ten 1 to 2 mm polyps in the sigmoid colon, at the splenic flexure and in the ascending colon, removed with a hot snare. Resected and retrieved. - Three bleeding colonic angiodysplastic lesions. Treated with a heater probe. Recommendations : - Discharge patient to home. - Resume previous diet. - Continue present medications. - Await pathology results. - Repeat colonoscopy in 1 year for surveillance. My findings are described in the full procedure note, which is enclosed. If I can be of further assistance, please feel free to contact me at . Sincerely, Ellis Chris, 10/19/2021 9:20:31 AM This report has been signed electronically.
--- NOTE | 2021-10-19 11:35 | CASEMGMT ---
HARI HECK Assessment: Face to Face with pt for initial transition planning/care coordination assessment. RN UMANG introduced self and role at [facility], pt voices understanding and consents to assessment. Pt is A/O x4 and answers all questions appropriately at this time. Pt lying in bed receiving blood. Care providers, pharmacy, and demographics verified/updated. Admitting Dx: GIB, Anemia PCP: Pt does not have PCP, provided with local healthcare directory. Pt states his got him papers to see if would accept him but he has not completed them yet. Specialists:Pt denies. Preferred Pharmacy: [facility] Insurance: MMO [facility] Prescription Benefit: yes LW/HPOA: Pt denies having a LW/DPOA and denies need for info regarding AD. Provided pt with [employer] card. LNOK: Swetha Major, Living Arrangements: Pt lives with in a two story house with 4 steps to enter with a rail. Pt reports he is I in ADL's and denies concerns at home. Transportation: Pt drives self and denies concerns with transportation. DME/HHC/SNF: Pt denies having any DME, previous HHC or SNF stays. Pt states no concerns with going home at time of dc. Pt states no further concerns/needs. CM to follow. Advised pt to ask CM if any further question/concerns/needs arise, voices understanding. Pt Goal: Home Plan: Home
--- NOTE | 2021-10-19 12:36 | DCINST_ITS ---
Discharge Instructions Diet Discharge Diet: No restrictions Activity Discharge Activity: Return to Normal Activity (Slowly ease back into your normal routine over a matter of several days.) Dressing / Incision Call your doctor if you observe: Fainting spells and - (Blood in stools. Dark tarry stools.) Follow Up Care Test Results: Test results from this visit will be discussed in further detail at your follow- up appointment, if applicable. Discharge Plan Admission Admit Date/Time: 10/18/21 14:41 Primary Reason for Your Visit: Acute blood loss anemia. Lower gastrointestinal bleeding. Attending Provider: Praveen Deras Primary Care Provider: Care Physician,Anna Primary Discharge Orders/Prescriptions Prescriptions: New ferrous sulfate [FeroSul] 325 mg (65 mg iron) Tablet 325 mg PO LUNCH Qty: 14 0RF Referrals / Follow Up: Care Physician,No Primary [Primary Care Provider] - NOT,DEFINED [Non-Staff] - Aries,Ellis, [Med Staff - Active Staff] - Within 1 Month Disposition Disposition (needs filled in before D/C Order can be placed): Home, Self Care
[2021-10-19] MEDS: Ferrous Sulfate 325 MG Tablet PO (13:24)
--- NOTE | 2021-10-19 14:12 | DS.PCM_ITS ---
Providers Date of Admission: 10/18/21 Primary Care Physician: Anna Primary Care Phys Consultations 10/18/21 15:03 Consult: Gastroenterology Routine Consulting Provider: Talya Gastroentercarline Reason for Consult: GI bleed EMERGENT Consult: No MD Notified: Yes Date Notified: 10/18/21 Time Notified: 14:43 Method of Notification: Text Reason For Visit: GI BLEED, ANEMIA Diagnosis Discharge Diagnosis (1) GI bleeding: Status: Acute Code(s): K92.2 - Gastrointestinal hemorrhage, unspecified Qualifiers: GI bleed type/associated pathology: unspecified gastrointestinal hemorrhage type Qualified Code(s): K92.2 - Gastrointestinal hemorrhage, unspecified Plan: EGD was unremarkable Colonoscopy showed diverticulosis in the rectosigmoid colon, 10 1 to 2 mm polyps in the sigmoid colon that was removed with a hot snare. 3 bleeding angiodysplastic lesions that were treated with heater probe. Due to the angiodysplastic lesions which were treated with heater probe. If no further bleeding and hemoglobin stable patient can be discharged. (2) Anemia: Status: Acute Code(s): D64.9 - Anemia, unspecified Qualifiers: Anemia type: other cause Qualified Code(s): D64.89 - Other specified anemias Plan: Secondary to above. Acute blood loss. No baseline labs to compare to but given his symptomatology and his bleeding I suspect his hemoglobin is lower than his baseline Plan: * Monitor H&H every 6 hours for next 24 hours * Transfuse 1 unit on the . * Hemoglobin 6.4 and will transfuse another. * We will start the patient on iron Plan VTE prophylaxis with SCDs. Chemical prophylaxis contraindicated given the GI bleed. is present at bedside. All questions were answered. Plan is to monitor the patient if his hemoglobin remained stable and no further bleeding then he can be discharged home and follow-up with gastroenterology as outpatient. Medications at Discharge Home Medications ferrous sulfate 325 mg (65 mg iron) tablet (FeroSul) 325 mg PO LUNCH #14 tabs 10/19/21 Hospital Course Operations None Procedures Colonoscopy and EGD Summary of Care Provided Minutes Spent on Discharge: 35 Hospital Course: This is a six 6-year-old male presents with GI bleed. Initially was thought to be due to peptic ulcer disease given his remote history of PUD but EGD was negative. Colonoscopy showed bleeding angiodysplastic lesions in his colon which were cauterized. Patient did require 3 units of packed red blood cells during the course of his hospitalization. He has not had any further hematochezia since his colonoscopy. Patient will be discharged home and he will be prescribed a 2-week course of ferrous sulfate. Patient advised to return if he has any further bleeding or melena. Weight / BMI Weight Weight: 130.379 kg Body Mass Index (BMI) 40.1 ABG / Lab / Microbiology Data Result Diagrams: 10/19/21 12:00 10/19/21 05:40 Laboratory: Laboratory Results - last 24 hr 10/18/21 17:10: Hgb 6.9 L, Hct 20.6 L 10/18/21 17:45: Blood Type A POSITIVE, Antibody Screen NEGATIVE, Crossmatch See Detail 10/18/21 17:45: Crossmatch See Detail 10/18/21 17:45: Crossmatch See Detail 10/19/21 00:48: Hgb 7.0 L, Hct 20.7 L 10/19/21 05:40: WBC 10.3, RBC 2.14 L, Hgb 6.4 L, Hct 19.7 L, MCV 92.1, MCH 29.9, MCHC 32.5, RDW Std Deviation 45.3 H, RDW Coeff of [place] 13.8, Plt Count 161, MPV 10.2, Immature Gran % (Auto) 1.000 H, Neut % (Auto) 59.8, Lymph % (Auto) 28.6, [place] % (Auto) 9.4, Eos % (Auto) 0.9, Baso % (Auto) 0.3, Absolute Neuts (auto) 6.2, Absolute Lymphs (auto) 2.95, Nucleated RBC % 0.4 10/19/21 05:40: Sodium 142, Potassium 3.9, Chloride 113 H, Carbon Dioxide 26.0, Anion Gap 3 L, BUN 20 H, Creatinine 0.84, Estim Creat Clear Calc 92.13, Est GFR (MDRD) Af Amer 118, Est GFR (MDRD) Non-Af 98, BUN/Creatinine Ratio 23.9 H, Glucose 114 H, Calcium 7.9 L 10/19/21 05:40: PT 15.2 H, INR 1.2, APTT 26.9 10/19/21 12:00: Hgb 7.0 L, Hct 21.0 L Microbiology: Microbiology 10/18/21 11:30 Urine, Clean Catch Urine Culture - Preliminary Culture exhibits no growth. 10/18/21 13:34 Stool Stool Occult Blood (DALI) - Final Occult Blood Positive D/C Instructions Discharge Diet: No restrictions Call your doctor if you observe: Fainting spells and - (Blood in stools. Dark tarry stools.) Meaningful Use Info Meaningful Use Diagnoses (Choose all that apply): None applicable Discharge Plan Admission Admit Date/Time: 10/18/21 14:41 Primary Reason for Your Visit: Acute blood loss anemia. Lower gastrointestinal bleeding. Attending Provider: Praveen Deras Primary Care Provider: Care Physician,No Primary Discharge Orders/Prescriptions Prescriptions: New ferrous sulfate [FeroSul] 325 mg (65 mg iron) Tablet 325 mg PO LUNCH Qty: 14 0RF Referrals / Follow Up: Ellis Chris DO [Med Staff - Active Staff] - Within 1 Month Care Physician,No Primary [Primary Care Provider] - NOT,DEFINED [Non-Staff] - Disposition Disposition (needs filled in before D/C Order can be placed): Home, Self Care Charges/Coding Visit Charges Inpatient E&M: 99426 Disch Hosp
== END 2021-10-19 17:36 | disposition home or self-care (01) | DRG 378 ==
LOC: ED 14:06 → MS3 14:28
PROVIDERS: Anesthesiology; Internal Medicine Gastroenterology; Emergency Provider Emergency Medicine
PROC: 0DJD8ZZ Inspection of Lower Intestinal Tract, Via Natural or Artificial Opening Endoscopic (ICD-10-PCS; CPT 45378; principal; 2021-10-19 08:15)
DX: K55.21 Angiodysplasia of colon with hemorrhage (principal); D62 Acute posthemorrhagic anemia; I10 Essential (primary) hypertension; D50.9 Iron deficiency anemia, unspecified; K44.9 Diaphragmatic hernia without obstruction or gangrene; K63.5 Polyp of colon; K57.30 Diverticulosis of large intestine without perforation or abscess without bleeding; Z90.49 Acquired absence of other specified parts of digestive tract
CPT/HCPCS: 36415; 80048; 80053; 81001; 82274; 85014; 85018; 85025; 85610; 85730; 86850; 86900; 86901; 86920; 86922; 87086; 88305; 88313; 88341; 88342; 93005; 99285; J7030; J7040; P9016; A4216; J2405

== ENCOUNTER 2021-10-20 02:48 | Inpatient (IN) | payer MEDICARE, SELFPAY ==
[2021-10-20] VITALS (49 sets, daily range): BP systolic 82–152; BP diastolic 51–76; PULSE 57–93; RESP 14–24; TEMP 36.4–36.9; O2SAT 94–100; BMI 42.3; BMI 41.4
--- NOTE | 2021-10-20 03:06 | ED.VIS.GI ---
HPI HPI - GI History of Present Illness Chief Complaint: GI Bleed Detail of Chief Complaint: rectal bleeding Informant: patient Nausea/Vomiting/Emesis GI Symptom: Negative for Nausea or Vomiting Diarrhea/Melena/Hematochezia GI Symptom: Negative for Diarrhea, Melena or Hematochezia Associated Symptoms Associated Symptoms: Negative for Dysuria, Frequency, Hematuria or Urgency Narrative Narrative: Patient felt like he needed to have diarrhea suddenly this morning, he went to the bathroom and had a large amount of rectal bleeding. He felt a little lightheaded transiently no near syncope or syncope, no abdominal pain, nausea, vomiting. He feels fine now. This past day, he was admitted to the hospital here for GI bleeding and had a colonoscopy, patient and his state that the patcher bowling ball Dr. Chris found 10 polyps that appeared to be the source of the bleeding, and they were all removed and sent for pathology. Patient takes no antiplatelet or anticoagulant medications. [facility] Medical History Bleeding ulcer History of stress test Hypertension Irregular heartbeat Ulcer Home Medications NK 10/20/21 [History Last Taken Unknown] Allergy/AdvReac Type Severity Reaction Status Date / Time Penicillins Allergy Other Verified 10/20/21 02:53 Social History Smoking Status: Never smoker alcohol intake: never substance use type: does not use ROS ROS ED Constitutional Constitutional ED: Denies chills or fever(s) Eyes Eyes: Denies change in vision or diplopia ENT ENT ED: Denies rhinorrhea or sore throat Cardiovascular Cardiovascular: Reports lightheadedness; Denies chest pain or palpitations Respiratory/Chest Respiratory/Chest: Denies cough or dyspnea Gastrointestinal Gastrointestinal: Reports as per HPI and rectal bleeding; Denies abdominal pain, diarrhea, nausea or vomiting Genitourinary Genitourinary ED: Denies dysuria or hematuria Musculoskeletal Musculoskeletal: Denies back pain or neck pain Integumentary Denies abscess or rash Neurologic Neurologic: Denies headache(s), paresthesias or weakness Psychiatric Psychiatric: Denies anxiety or suicidal thoughts EXAM Physical Exam Const Vital Signs: 10/20/21 02:49 10/20/21 03:10 10/20/21 04:32 Temperature 97.5 F L Temperature Source Temporal Pulse Rate 75 66 Pulse Rate [Lying] 82 Respiratory Rate 15 16 Blood Pressure 121/64 H 123/63 H Blood Pressure [Lying] 126/57 H Blood Pressure [Sitting (for 1 minute prior to obtaining)] 82/52 L Blood Pressure Mean 83 83 Blood Pressure Mean [Lying] 80 Blood Pressure Mean [Sitting (for 1 minute prior to obtaining)] 62 Pulse Ox 97 97 Oxygen Delivery Method Room Air Nasal Cannula Oxygen Flow Rate (L/min) 2 Positive well nourished, well developed and obese General Appearance ED: well developed and NAD Nutritional Appearance: obese HEENT Reports moist mucous membranes normocephalic and atraumatic Eyes PERRL and EOMs intact bilaterally Neck full ROM and supple Resp normal respiratory effort and clear to auscultation bilaterally Effort and Inspection: able to speak in complete sentences Cardio regular rate, regular rhythm and no murmurs Rate: Negative for tachycardic GI non-tender and non-distended GI Narrative: On digital rectal exam, there is brown stool with a trace of dark red, NO active bleeding. NO pooling of any blood. Auscultation: normoactive bowel sounds Palpation: soft Back/Spine no CVA tenderness General Back: other FROM Extremity normal to inspection General Extremety ED: Negative for edema, pulses abnormal or tenderness General Extremity: Negative for edema or pulses abnormal Neuro oriented x3, CN's II-XII intact bilaterally and no sensory deficits noted Sensorium / Orientation: awake and alert Motor Exam: strength 5/5 throughout Skin no rashes or lesions noted and no wounds MDM MDM MDM Narrative Medical decision making narrative: Patient received a little bit of IV fluids from EMS, his vital signs are normal and he looks well. We did orthostatics, and with sitting him up he was very positive going down to the 80s from 121 systolic. We laid him back down to continue giving him fluids while we obtain labs including a type and screen. With his hemoglobin at 6.1 and orthostatic after this episode of further rectal bleeding, he will require blood transfusion; consented him for blood, he had no questions and was comfortable with that, so that will be started as soon as it is available. From looking at the recent procedure note, in addition to the 10 polyps that were resected he also had 3 angiodysplastic lesions that were bleeding. I did discuss with Dr. Chris, he states the patient can be admitted here and does not require tertiary care transfer emergently at this time. Discussed with hospitalist. Lab Data Attestation: I reviewed the patient's lab results. Labs: Laboratory Results - last 24 hr 10/20/21 10/20/21 10/20/21 02:50 02:50 02:50 WBC 12.9 H RBC 2.05 L Hgb 6.1 L Hct 18.5 L MCV 90.2 MCH 29.8 MCHC 33.0 RDW Std Deviation 52.0 H RDW Coeff of [place] 16.2 H Plt Count 155 MPV 10.2 Immature Gran % (Auto) 1.500 H Neut % (Auto) 57.0 Lymph % (Auto) 30.9 [place] % (Auto) 9.2 Eos % (Auto) 1.2 Baso % (Auto) 0.2 Absolute Neuts (auto) 7.4 Absolute Lymphs (auto) 3.99 Nucleated RBC % 1.1 Sodium 144 Potassium 3.0 L Chloride 114 H Carbon Dioxide 22.0 Anion Gap 8 BUN 19 H Creatinine 1.14 Estim Creat Clear Calc 67.89 Est GFR (MDRD) Af Amer 83 Est GFR (MDRD) Non-Af 68 BUN/Creatinine Ratio 16.7 Glucose 154 H Calcium 7.6 L Crossmatch See Detail Critical Care Time Critical Care Time: Yes Critical care time (excluding procedures): 30-74 minutes (35 min), Including time spent:, Discussing w/Patient &/or Family/Optometric Coordinator, Discussing w/Consultants, Arranging Admission or Transfer and Performing Direct Patient Care at Bedside Discharge Plan Dx/Rx/DC Orders Clinical Impression: Acute blood loss anemia, Acute lower gastrointestinal bleeding, Orthostatic hypotension, Angiodysplasia of colon with hemorrhage Disposition Disposition: Acute Care [facility]
[2021-10-20] MEDS: 0.9% Normal Saline 1,000 ML 999 ML IV (03:13)
[2021-10-20 03:15] LABS: Absolute Lymphocyte Count 3.99 X10^3/uL (0.83-4.51); Absolute Neutrophil Count 7.4 X10^3/uL (2.0-7.7); Basophil# 0.03 X10^3/uL; Basophil% 0.2 % (0-1); Eosinophil# 0.15 X10^3/uL; Eosinophils% 1.2 % (0-5); Hematocrit 18.5 % (40-54); Hemoglobin 6.1 g/dL (13.0-16.5); Lymphocyte # 3.99 X10^3/ul (0.83-4.51); Lymphocyte % 30.9 % (19-41); Mean Corpuscular Hgb 29.8 pg (27.0-32.0); Mean Corpuscular Volume 90.2 fL (80-94); Mean Platelet Vol. 10.2 fl (6.2-12.0); Monocyte# 1.19 X10^3/uL; Monocyte% 9.2 % (0-10); NRBC Flagged by Analyzer 1.1 % (0-5); Neutrophil # 7.35 X10^3/uL (2.7-7.7); Platelet Count 155 K/mm3 (150-450); RBC Distribution Width CV 16.2 % (11.6-14.6); Red Blood Count 2.05 M/mm3 (4.6-6.2); White Blood Count 12.9 K/mm3 (4.4-11.0)
[2021-10-20 03:29] LABS: Anion Gap 8 (5-15); BUN 19 mg/dL (7-18); BUN/Creat Ratio 16.7 RATIO (10-20); Calcium,Total 7.6 mg/dL (8.5-10.1); Chloride 114 mmol/L (98-107); Creatinine, Serum 1.14 mg/dL (0.70-1.30); EST Glomerular Filtration Rate 68 mL/min (>60); Est Glom Filt Rate - Afr Amer 83 mL/min (>60); Estimated Creatinine Clearance 67.89 ml/min; Glucose 154 mg/dL (74-106); Sodium Level 144 mmol/L (136-145)
--- NOTE | 2021-10-20 04:44 | HP.PCM.HOS_ITS ---
HPI - General General Date of Admission: 10/20/21 Date of Service: 10/20/21 Chief Complaint: hematochezia HPI Narrative JAYE JAMES, is a 66 M who was admitted on 10/18/2021 and discharged on 10/20/2019 to our hospital for a GI bleed and found to have ten 1-2mm sigmoid colonic polyps that was resected and at 3 colonic angiodysplastic lesion now returning with hematochezia at the next day after discharge. His bowels had little stool and majority of blood. After his bowel movement he felt lightheaded and fell in his bedroom. ED doctor reports dark blood on stool with rectal examination. [facility] Medical History Bleeding ulcer History of stress test Hypertension Irregular heartbeat Ulcer Home Medications NK 10/20/21 [History Last Taken Unknown] Allergy/AdvReac Type Severity Reaction Status Date / Time Penicillins Allergy Other Verified 10/20/21 02:53 Family History Other CVA (cerebral vascular accident) Heart disease Myasthenia gravis Polymyositis Surgical History H/O colonoscopy with polypectomy Social History Smoking Status: Never smoker alcohol intake: never substance use type: does not use ROS ROS Narrative Pertinent positives and pertinent negatives as noted in HPI. All other systems were reviewed and are negative Vital Signs Vital Signs Vital Signs: 10/20/21 02:49 10/20/21 03:10 10/20/21 04:32 Temperature 97.5 F L Temperature Source Temporal Pulse Rate 75 66 Pulse Rate [Lying] 82 Respiratory Rate 15 16 Blood Pressure 121/64 H 123/63 H Blood Pressure [Lying] 126/57 H Blood Pressure [Sitting (for 1 minute prior to obtaining)] 82/52 L Blood Pressure Mean 83 83 Blood Pressure Mean [Lying] 80 Blood Pressure Mean [Sitting (for 1 minute prior to obtaining)] 62 Pulse Ox 97 97 Oxygen Delivery Method Room Air Nasal Cannula Oxygen Flow Rate (L/min) 2 Weight Weight: 137.8 kg Body Mass Index (BMI) 42.3 Physical Exam Narrative Physical exam: General: Well-nourished, well-developed. Head: Normocephalic, atraumatic, no tenderness Eyes: Vision is grossly intact. EOMI ENT, no trauma, moist mucous membranes, no rhinorrhea Neck: Nontender, full range of motion. CVS: Regular rate and rhythm. S1-S2 present. No murmur, gallop or rub. Respiratory : clear to auscultation bilaterally, chest wall nontender, no wheezing Abdomen: Soft, nontender, nondistended, normal bowel sounds, no masses : Deferred Back: Nontender, no CVA tenderness. Extremities: Nontender full range of motion, no trauma Skin:Pale, no trauma, abrasions Neuro: Alert, oriented, cranial nerves II through XII grossly intact. Psychiatry: Normal mood. Normal affect. Not depressed. Not anxious. Results Lab / Micro Data Result Diagrams: 10/20/21 02:50 10/20/21 02:50 Labs: Laboratory Results - last 24 hr 10/20/21 02:50: WBC 12.9 H, RBC 2.05 L, Hgb 6.1 L, Hct 18.5 L, MCV 90.2, MCH 29.8, MCHC 33.0, RDW Std Deviation 52.0 H, RDW Coeff of [place] 16.2 H, Plt Count 155, MPV 10.2, Immature Gran % (Auto) 1.500 H, Neut % (Auto) 57.0, Lymph % (Auto) 30.9, [place] % (Auto) 9.2, Eos % (Auto) 1.2, Baso % (Auto) 0.2, Absolute Neuts (auto) 7.4, Absolute Lymphs (auto) 3.99, Nucleated RBC % 1.1 10/20/21 02:50: Sodium 144, Potassium 3.0 L, Chloride 114 H, Carbon Dioxide 22.0, Anion Gap 8, BUN 19 H, Creatinine 1.14, Estim Creat Clear Calc 67.89, Est GFR (MDRD) Af Amer 83, Est GFR (MDRD) Non-Af 68, BUN/Creatinine Ratio 16.7, Glucose 154 H, Calcium 7.6 L 10/20/21 02:50: Crossmatch See Detail Assessment & Plan Assessment/Plan (1) Acute blood loss anemia: (2) Acute lower gastrointestinal bleeding: (3) Orthostatic hypotension: PLAN: Plan Acute blood loss anemia likely from acute lower gastrointestinal bleeding With orthostatic hypotension at the ED will admit patient to the intensive care unit. On presentation hemoglobin was 6.1. Two units of packed red blood cells ordered the ED. Check H&H 1 hour after 2 units of packed red blood cells has been completed. Received normal saline bolus at emergency department. Maintenance normal saline hydration ordered. Review of record shows that with patient's recent hospitalization 10/18/2021 to 10/19/2021 he presented with acute bleed and receive packed red blood cells. EGD and colonoscopy was done. EGD showed irregular Z-line; and small hiatal hernia. Colonoscopy showed ten 1 to 2 mm polyps that were resected in the sigmoid colon. Also he had 3 angiodysplastic lesions in his colon that was treated with heater probe. Will keep patient NPO. Consult data scientist. DVT Prophylaxis: Patient is not a candidate for chemical thromboprophylaxis. SCDs ordered
--- NOTE | 2021-10-20 07:00 | PCM.CONS.GEN ---
Assessment & Plan Assessment/Plan (1) GI bleeding: QUALIFIERS: GI bleed type/associated pathology: unspecified gastrointestinal hemorrhage type Qualified Code(s): K92.2 - Gastrointestinal hemorrhage, unspecified PLAN: The differential diagnosis for an acute lower GI bleed would be a post polypectomy bleed, diverticular bleed, small bowel bleed. He will undergo an unprepped colonoscopy. He was explained alternatives, risk, benefits include not withstanding bleeding, infection, sepsis, perforation, need for emergent surgery . He will have an ASA of 3. HPI Consult Data Date of Consult: 10/20/21 HPI Narrative Reason for Consultation: GI bleed HPI Narrative: JAYE JAMES, is a 66 M who presents from home after being discharged from the hospital for an acute GI bleed.? He relates remote history of bleeding ulcer 40 years ago.? He does not take blood thinners and has not seen a primary care physician in quite some time.? He picked up his [place]kids from the airport on Thursday evening and Thursday morning, 2 days ago, he had his first episode of dark brown/bloody bowel movement.? ?Since then, he states today he had a few episodes of bright red blood with bowel movements.? He feels lightheaded.? He denies any abdominal pain.? No fevers or chills.? No exacerbating or alleviating factors.? He does not take any blood thinners or any medications currently.? He states he is concerned because he has bright red blood per rectum with bowel movements.? He denies other bleeding diathesis. His BUN to creatinine ratio in the ED 60-1.1, his hemoglobin was 8 and currently it is down to 6.9. He underwent a colonoscopy and upper endoscopy. His upper endoscopy he did not show any signs of an acute GI bleed. His colonoscopy did have multiple polyps that were removed. There were 10 in total. He comes back again with lower GI bleeding. When he left the hospital his hemoglobin was up to 9 and it is now down to 7. He was transfused 5 units of packed red blood cells and his hemoglobin is still only 7. All 16 review of systems are negative except those pertinent positive mentioned HPI [facility] Medical History Bleeding ulcer History of stress test Hypertension Irregular heartbeat Ulcer Home Medications NK 10/20/21 [History Last Taken Unknown] Allergy/AdvReac Type Severity Reaction Status Date / Time Penicillins Allergy Other Verified 10/20/21 02:53 Family History Other CVA (cerebral vascular accident) Heart disease Myasthenia gravis Polymyositis Surgical History H/O colonoscopy with polypectomy Social History Smoking Status: Never smoker alcohol intake: never substance use type: does not use ROS ROS Narrative Pertinent positives and pertinent negatives as noted in HPI. All other systems were reviewed and are negative Physical Exam Narrative Physical exam: General: Well-nourished, well-developed. Head: Normocephalic, atraumatic, no tenderness Eyes: Vision is grossly intact. EOMI ENT, no trauma, moist mucous membranes, no rhinorrhea Neck: Nontender, full range of motion. CVS: Regular rate and rhythm. S1-S2 present. No murmur, gallop or rub. Respiratory : clear to auscultation bilaterally, chest wall nontender, no wheezing Abdomen: Soft, nontender, nondistended, normal bowel sounds, no masses : Deferred Back: Nontender, no CVA tenderness. Extremities: Nontender full range of motion, no trauma Skin:Pale, no trauma, abrasions Neuro: Alert, oriented, cranial nerves II through XII grossly intact. Psychiatry: Normal mood. Normal affect. Not depressed. Not anxious. Lab / Micro Data Result Diagrams: 10/20/21 16:20 10/20/21 02:50 Labs: Laboratory Results - last 24 hr 10/20/21 02:50: WBC 12.9 H, RBC 2.05 L, Hgb 6.1 L, Hct 18.5 L, MCV 90.2, MCH 29.8, MCHC 33.0, RDW Std Deviation 52.0 H, RDW Coeff of [place] 16.2 H, Plt Count 155, MPV 10.2, Immature Gran % (Auto) 1.500 H, Neut % (Auto) 57.0, Lymph % (Auto) 30.9, [place] % (Auto) 9.2, Eos % (Auto) 1.2, Baso % (Auto) 0.2, Absolute Neuts (auto) 7.4, Absolute Lymphs (auto) 3.99, Nucleated RBC % 1.1 10/20/21 02:50: Sodium 144, Potassium 3.0 L, Chloride 114 H, Carbon Dioxide 22.0, Anion Gap 8, BUN 19 H, Creatinine 1.14, Estim Creat Clear Calc 67.89, Est GFR (MDRD) Af Amer 83, Est GFR (MDRD) Non-Af 68, BUN/Creatinine Ratio 16.7, Glucose 154 H, Calcium 7.6 L 10/20/21 02:50: Blood Type A POSITIVE, Antibody Screen NEGATIVE, Crossmatch See Detail 10/20/21 02:50: Crossmatch See Detail 10/20/21 02:50: Crossmatch See Detail 10/20/21 02:50: Crossmatch See Detail 10/20/21 02:50: Crossmatch See Detail 10/20/21 10:40: Hgb 6.4 L, Hct 19.4 L 10/20/21 16:20: Hgb 7.0 L, Hct 21.3 L Charges/Coding Visit Charges Inpatient E&M: 24321 Init Hosp L2
[2021-10-20] MEDS: 0.9% Normal Saline 1,000 ML 100 ML IV ×3 (08:05→16:27)
[2021-10-20] MEDS: Acetaminophen 325 MG Tablet 650 MG PO ×2 (08:05→22:44)
[2021-10-20 10:49] LABS: Hematocrit 19.4 % (40-54); Hemoglobin 6.4 g/dL (13.0-16.5)
--- NOTE | 2021-10-20 13:09 | PCM.HOSP.N ---
Hospitalist Note Mr. Major is a 66-year-old white male who presented to the emergency department early this morning with hematochezia. He had a recent admission here from 10/18 through 10/19/2021 at which time he presented for GI bleed and a colonoscopy was performed. He was found to have 3 colonic angiodysplastic lesions as well as 10 1 to 2 mm sigmoid colonic polyps that were resected. The patient has stable hemoglobin and was able to be discharged yesterday however through the night he developed hematochezia again. After his bowel movement he felt significantly lightheaded and fell to the bathroom floor. Per discussion with Dr. Chris, there was significant bleeding even during the colonoscopy and he suspect that this is just equilibration from previous bleeding and old blood. The patient has been transfused 2 units packed red blood cells for hemoglobin of 6.1 with a repeat hemoglobin of 6.4. We will go ahead and transfuse 2 more units with a follow-up hemoglobin following. If his hemoglobin does not stabilize the plan is for colonoscopy tomorrow. He is currently hemodynamically stable with a blood pressure 131/74 and is satting 99% on room air. Heart rate is 75 at this time. He was found to be hypokalemic and we will go ahead and give him 40 mill equivalents of p.o. potassium and recheck in the a.m.
[2021-10-20] MEDS: Potassium Chloride Oral Tablet 20 MEQ 40 MEQ PO (15:41)
[2021-10-20 16:35] LABS: Hematocrit 21.3 % (40-54)
--- NOTE | 2021-10-20 19:15 | NURSING ---
Report received from monique RN, pt remains in Endo for scope at this time.
--- NOTE | 2021-10-20 20:05 | NURSING ---
Pt returned from Endo procedure, report received from HARI Gray and YOLI Stacy at bedside. Pt on 3L NC, very drowsy still.
--- NOTE | 2021-10-20 20:06 | OP.COLON_ITS ---
Patient Name: Chris Major Procedure Date: 10/20/2021 5:59 PM Date of : 1955 Age: 66 Procedure: Colonoscopy Indications: Hematochezia Providers: Ellis Chris DO Medicines: Monitored Anesthesia Care Patient Profile: This is a 66 year old male who initially presented to the hospital with massive lower GI bleed. The patient's outpatient hemoglobin was 15 and it had dropped down to 6. He was transfused 2 units of packed red blood cells. He underwent colonoscopy and was discovered to have 10 polyps that were removed endoscopically. That was thought to be the etiology of his lower GI bleeding as some of the polyps had bleeding stigmata. He presented back to the hospital after having a syncopal event at home. His repeat hemoglobin was back down to 6 he received 4 units of packed red blood cells and his hemoglobin only improved to 7. He presents now for a unprepped repeat colonoscopy. Refer to note in patient chart for documentation of history and physical. Last Colonoscopy: 1 day ago. Complications: No immediate complications. Procedure: Pre-Anesthesia Assessment: - Prior to the procedure, a History and Physical was performed, and patient medications and allergies were reviewed. The patient is competent. The risks and benefits of the procedure and the sedation options and risks were discussed with the patient. All questions were answered and informed consent was obtained. Patient identification and proposed procedure were verified by the physician in the pre-procedure area. Mental Status Examination: alert and oriented. Airway Examination: normal oropharyngeal airway and neck mobility. Respiratory Examination: clear to auscultation. CV Examination: normal. Prophylactic Antibiotics: The patient does not require prophylactic antibiotics. Prior Anticoagulants: The patient has taken no previous anticoagulant or antiplatelet agents. After reviewing the risks and benefits, the patient was deemed in satisfactory condition to undergo the procedure. The anesthesia plan was to use moderate sedation / analgesia (conscious sedation). Immediately prior to administration of medications, the patient was re-assessed for adequacy to receive sedatives. The heart rate, respiratory rate, oxygen saturations, blood pressure, adequacy of pulmonary ventilation, and response to care were monitored throughout the procedure. The physical status of the patient was re-assessed after the procedure. After I obtained informed consent, the scope was passed under direct vision. Throughout the procedure, the patient's blood pressure, pulse, and oxygen saturations were monitored continuously. The colonoscope was introduced through the anus and advanced to the terminal ileum. The colonoscopy was performed without difficulty. The patient tolerated the procedure well. The quality of the bowel preparation was 90 percent obscured. Scope In: 6:24:32 PM Scope Withdrawal Time 0 hours 41 minutes 53 seconds Scope Out: 7:45:41 PM Total Procedure Duration Time 1 hour 21 minutes 9 seconds Findings: Red blood was found in the entire colon. Fluid aspiration was performed through the scope suction channel. The amount of fluid collected was 1000 mL. The fluid was bloody in content. The previous 10 polypectomy sites were evaluated and there was no stigmata of bleeding. Clips were placed at all the polypectomy sites and normal ascending colon. There were 4 clips in total that were placed. The rest of the polypectomy sites were carefully examined and washed vigorously. The terminal ileum was intubated and blood was seen in the terminal ileum continuously as far as the scope could go which was about 20 cm. A few five mm ulcers were found in the ascending colon. No bleeding was present. No stigmata of recent bleeding were seen. To prevent bleeding post-intervention, four hemostatic clips were successfully placed. There was no bleeding at the end of the procedure. Impression: - Blood in the entire examined colon. Fluid aspiration performed. - A few ulcers in the ascending colon. Clips were placed. Recommendation: - Return patient to hospital dye for ongoing care. - Repeat colonoscopy in 1 year for surveillance. - Continue present medications. - CT angiography to look for source of GI bleed in the small bowel Procedure Code(s): --- Professional --- 69948, Colonoscopy, flexible; diagnostic, including collection of specimen(s) by brushing or washing, when performed (separate procedure) CPT copyright 2017 [employer]. All rights reserved. The codes documented in this report are preliminary and upon gyroscope repairer review may be revised to meet current compliance requirements. Ellis Chris DO 10/20/2021 8:05:32 PM This report has been signed electronically. Number of Addenda: 1 Note Initiated On: 10/20/2021 5:59 PM Addendum Number: 1 Addendum Date: 12/05/2021 6:11:06 AM MAC was used as sedation for this procedure. Ellis Chris DO 12/05/2021 6:11:10 AM This report has been signed electronically.
--- NOTE | 2021-10-20 20:06 | OP.CCLET_ITS ---
12/05/2021 No Primary Care Physician Re : Colonoscopy procedure for Chris Major Dear Care Physician This procedure was performed on Wednesday, October 20, 2021. My impressions and recommendations are as follows: Impressions : - Blood in the entire examined colon. Fluid aspiration performed. - A few ulcers in the ascending colon. Clips were placed. Recommendations : - Return patient to hospital dye for ongoing care. - Repeat colonoscopy in 1 year for surveillance. - Continue present medications. - CT angiography to look for source of GI bleed in the small bowel My findings are described in the full procedure note, which is enclosed. If I can be of further assistance, please feel free to contact me at . Sincerely, Ellis Chris, 10/20/2021 8:05:32 PM This report has been signed electronically.
--- NOTE | 2021-10-20 20:06 | CT_ITS ---
INDICATION: lower GI bleeding EXAMINATION: CT ABDOMEN AND PELVIS WITH CONTRAST - CTA Abdomen and Pelvis WO/W Contrast Injection TECHNIQUE: Helically acquired images were obtained of the abdomen and pelvis following IV contrast. A radiation dose optimization technique was used for this scan. IV Contrast dosage and agent: 100 mL of ISOVUE-370. Oral contrast: None. COMPARISON: None. FINDINGS: LOWER CHEST: 4 mm nodule in the right middle lobe, axial image 4. Atelectatic changes bilateral lung bases and lingula. No cardiomegaly or pericardial effusion. No hiatal hernia. LIVER: Homogeneous. Normal size and contour. Peripheral, nonfluid density right hepatic lobe. The lesion is partially exophytic roughly 4.1 cm in length. GALLBLADDER AND BILIARY TREE: No calcified gallstones. No gallbladder distension or wall edema. No intra- or extrahepatic biliary ductal dilation. PANCREAS: No focal cystic or solid mass. SPLEEN: Normal size without focal cystic or solid mass. ADRENAL GLANDS: No nodules. KIDNEYS, URETERS and BLADDER: Normal renal size and position. 12 mm hypodensity inferior pole right kidney too small to confidently characterize. No hydronephrosis. Bladder is unremarkable. PERITONEUM: No ascites or free air. No other fluid collection. BOWEL: No evidence of acute appendicitis. Thin linear hyperdensity along the periphery of the cecum suggesting possible prior sutures. No cecal wall thickening or inflammatory changes. Descending colon is mostly collapsed however there are some areas of luminal air with questionable bowel wall thickening. No adjacent inflammatory changes. No abnormally fluid-filled distended colon or bowel. LYMPH NODES: No enlarged mesenteric or retroperitoneal lymph nodes. VESSELS: Aorta is non-dilated. REPRODUCTIVE ORGANS: Significant enlargement of the prostate gland. ABDOMINAL WALL: No discrete abdominal or pelvic wall hernia. BONES: No lytic or blastic abnormality. CT/CT ANGIO ABD&PEL W/O&W/DYE IMPRESSION: No evidence of acute intra-abdominal pathology. Mild colonic wall thickening suggested with no associated inflammatory changes. Note of probable surgical changes in the cecum. 4 cm hypodensity periphery right hepatic lobe too dense to represent a cyst on CT. Correlation with ultrasound is recommended. Otherwise normal appearance of the liver. 4 mm pulmonary nodule right middle lobe. Correlate with cancer risk and consider follow-up CT in 6-12 months. 12 mm hypodensity inferior pole right kidney too small to confidently characterize. This could be evaluated liver, on a right upper quadrant ultrasound. Significant prostate enlargement. Electronically Signed: Barron Stewart DO at 23:14 EDT ,
[2021-10-21] VITALS (30 sets, daily range): BP systolic 113–159; BP diastolic 49–78; PULSE 62–82; RESP 12–24; TEMP 36.4–37.2; O2SAT 92–100
--- NOTE | 2021-10-21 | COLBX_PTH ---
PATIENT: JAYE JAMES LOC: ICU U#:[id number] AGE/SX: 66/M ROOM: [place] [address] RE10/20/[address]: Dr. Sharon Enrique DO : 1955 BED: 1 DIS: 10/21/2021 SPEC #: [id number] RECD: 10/21/21 12:35 STATUS: LUMA REVeronique #: [id number] LAURA: 10/21/21 00:[address]: Ellis Chris DEPT: SURGICAL PATHOLOGY RECD BY: Vidal Calloway ENTERED: 10/21/21 12:35 SP TYPE: COLON BX OTHR DR: MD Dr. Sharon Stoll DO Dr. Rahsaan Friend, No Primary Care Phys Tissues: Ascending colon Procedures: Surgery Specimen Level IV Comments: @ Ordering doctor for SUEMILY edited from to @ by DERREK at 10/21/21 1504 @ Submitting doctor edited from to @ by DERREK at 10/21/21 1504 HEADER OPERATION: Colonoscopy with Gold probe cautery and polypectomy PRE-OP DIAGNOSIS: Acute blood loss anemia; acute lower GI bleeding TISSUE SUBMITTED: Ascending colon MICROSCOPIC DIAGNOSIS Ascending colon, biopsy: Fragments of tubular adenoma. AM:abad 10/22/2021 MICROSCOPIC DESCRIPTION Slides are reviewed. GROSS DESCRIPTION Received in fixative is one container labeled with the patient's name and designated ascending colon. The specimen consists of multiple irregular fragments of diana-pink polyp that in aggregate measure 1.5 x 1 x 0.4 cm. The specimen is totally submitted in one cassette. / SJ:abad 10/21/2021 TC:5 [facility]: [id number]
[2021-10-21 03:40] LABS: Absolute Lymphocyte Count 2.68 X10^3/uL (0.83-4.51); Absolute Neutrophil Count 5.9 X10^3/uL (2.0-7.7); Basophil# 0.02 X10^3/uL; Basophil% 0.2 % (0-1); Eosinophil# 0.14 X10^3/uL; Eosinophils% 1.4 % (0-5); Hematocrit 24.2 % (40-54); Hemoglobin 7.9 g/dL (13.0-16.5); Lymphocyte # 2.68 X10^3/ul (0.83-4.51); Lymphocyte % 27.7 % (19-41); Mean Corp Hgb Conc 32.6 g/dL (32-36); Mean Platelet Vol. 9.9 fl (6.2-12.0); Monocyte# 0.75 X10^3/uL; Monocyte% 7.7 % (0-10); NRBC Flagged by Analyzer 2.8 % (0-5); Neutrophil # 5.85 X10^3/uL (2.7-7.7); Neutrophil % 60.4 % (47-70); POSITIVE COUNT YES; Platelet Count 46 K/mm3 (150-450); RBC Distribution Width SD 48.6 fl (35.1-43.9); Red Blood Count 2.63 M/mm3 (4.6-6.2); White Blood Count 9.7 K/mm3 (4.4-11.0)
[2021-10-21 04:00] LABS: Anion Gap 6 (5-15); BUN 18 mg/dL (7-18); BUN/Creat Ratio 32.8 RATIO (10-20); Calcium,Total 6.8 mg/dL (8.5-10.1); Chloride 120 mmol/L (98-107); Creatinine, Serum 0.55 mg/dL (0.70-1.30); EST Glomerular Filtration Rate 159 mL/min (>60); Est Glom Filt Rate - Afr Amer 192 mL/min (>60); Estimated Creatinine Clearance 77.39 ml/min; Glucose 102 mg/dL (74-106); Potassium 3.5 mmol/L (3.5-5.1); Sodium Level 145 mmol/L (136-145)
[2021-10-21 04:03] LABS: Differential Indicated SCAN CRITERIA MET
[2021-10-21 04:32] LABS: Anisocytosis 1+; Platelet Estimate MKD DEC (ADEQ); Polychromasia 2+
--- NOTE | 2021-10-21 07:05 | US_ITS ---
STUDY: ABDOMINAL ULTRASOUND - RIGHT UPPER QUADRANT REASON FOR VISIT: Male, 66 years old Liver hypodensity on CT TECHNIQUE: Ultrasound evaluation of the right upper quadrant was performed with real-time and static jacobs-scale imaging. TECHNICAL QUALITY: Adequate. COMPARISON: Comparison is made with prior CT scan of the abdomen and pelvis dated 10/21/2019. FINDINGS: Liver: The liver is enlarged and measures 21.4 cm. There is normal echogenicity of the liver. The bile ducts are within normal limits. There is hepatic color flow. The direction of portal flow is hepatopetal. There is a 4.4 cm x 3.5 cm x 2 cm hypoechoic solid nodule in the right lobe of the liver corresponding to the CT findings. This is not a typical cyst. Gallbladder: Normal distended gallbladder. The gallbladder wall measures 3 mm. There is a negative sonographic Alvarado''s sign. There is no pericholecystic fluid. There are no gallstones. Common Bile Duct (C.B.D.): The common bile duct measures 4 mm. Pancreas: There is nonvisualization of the pancreas due to overlying bowel gas. There is normal echogenicity of the pancreas. There is no demonstrated pancreatic mass or cyst. Right Kidney: Normal size of the right kidney. The right kidney measures 11.9 cm x 6.4 cm x 6.7 cm. Normal renal cortex. The right cortex measures 2.0 cm. There is a 1.2 cm x 1.2 cm x 0.8 cm renal cyst. There is no right hydronephrosis. US/Abdomen Limited IMPRESSION: Hepatomegaly. 4.4 cm x 3.5 cm x 2 cm hypoechoic solid nodule in the right lobe of the liver corresponding to the CT findings. This is not a typical cyst. Electronically Signed: Anthony Elizondo MD at 10:17 EDT ,
[2021-10-21 07:14] LABS: International Normalized Ratio 1.3; Prothrombin Time (Protime)PT. 15.4 SECONDS (11.7-14.9)
[2021-10-21 07:15] LABS: Partial Thromboplast Time 26.6 Seconds (24.1-36.2)
[2021-10-21 07:45] LABS: LDH 159 U/L (87-241)
[2021-10-21] MEDS: Acetaminophen 325 MG Tablet 650 MG PO ×2 (08:12→14:20)
[2021-10-21] MEDS: 0.9% Saline Lock 10 ML Syringe IV ×2 (08:13→16:17)
[2021-10-21 10:09] LABS: Hematocrit 21.2 % (40-54); Hemoglobin 7.4 g/dL (13.0-16.5)
--- NOTE | 2021-10-21 11:40 | CASEMGMT ---
RN UMANG Face to Face with patient for initial transition planning/care coordination assessment. RN CM introduced self and role at [facility]. Patient lying in bed, alert and oriented, sons at bedside. Patient willing to participate in assessment and is able to answer all questions appropriately. Care providers, pharmacy, and demographics verified. Patient wishes to discharge home, denies need for home health at this time. Patient states he has no further needs or concerns at this time. CM to follow for discharge planning needs that may arise. PCP: No PCP, patient states he is working on getting established with [facility] and has initial paperwork Specialists: none Preferred Pharmacy: [facility] Insurance: [facility] Prescription Benefit: yes Living Will/HPOA: none LNOK: , sons Living Arrangements: Patient states he lives with in a 2 story home. Patient states he is normally independent and able to ambulate stairs. Transportation: self, DME/HHC: Patient denies DME or previous HHC Disposition Plan: Patient to discharge home with family support and follow-up plans in place. Fiorella BUIN, RN, CM
[2021-10-21] MEDS: 0.9% Normal Saline 1,000 ML 100 ML IV (11:56)
--- NOTE | 2021-10-21 12:00 | PN_ITS ---
Subjective Subjective Patient had another episode of hematochezia this morning. He underwent repeat colonoscopy last night and no etiology was found from his GI bleeding. Objective Data Objective Data Vital Signs: Vital Signs Temp Pulse Resp BP Pulse Ox O2 Del Method O2 Flow Rate 98.7 F 74 22 H 138/63 H 98 Room Air 2 10/21/21 16:30 10/21/21 16:30 10/21/21 16:30 10/21/21 16:30 10/21/21 16:30 10/21/21 16:30 10/20/21 21:31 Oxygen Flow Rate (L/min) 2 Oxygen Delivery Method Room Air Weight: 298 lb 11.622 oz Body Mass Index (BMI) 41.4 Intake & Output: Intake and Output for Last 24 Hours 10/19/21 10/20/21 10/21/21 23:59 23:59 23:59 Intake Total 4249.99 / 4249.99 1566.67 / 1566.67 Output Total 600 / 600 1300 / 1300 Balance 3649.99 / 3649.99 266.67 / 266.67 Lab / Micro Data Result Diagrams: 10/21/21 14:00 10/21/21 03:30 Labs: Laboratory Results - last 24 hr 10/20/21 02:50: Crossmatch See Detail 10/20/21 02:50: Crossmatch See Detail 10/20/21 02:50: Crossmatch See Detail 10/21/21 03:30: WBC 9.7, RBC 2.63 L, Hgb 7.9 L, Hct 24.2 L, MCV 92.0, MCH 30.0, MCHC 32.6, RDW Std Deviation 48.6 H, RDW Coeff of [place] 15.0 H, Plt Count 46 L*, MPV 9.9, Immature Gran % (Auto) 2.600 H, Neut % (Auto) 60.4, Lymph % (Auto) 27.7, [place] % (Auto) 7.7, Eos % (Auto) 1.4, Baso % (Auto) 0.2, Absolute Neuts (auto) 5.9, Absolute Lymphs (auto) 2.68, Nucleated RBC % 2.8, Diff Path Review June, Platelet Estimate MKD DEC, Polychromasia 2+, Anisocytosis 1+ 10/21/21 03:30: Sodium 145, Potassium 3.5, Chloride 120 H, Carbon Dioxide 19.0 L , Anion Gap 6, BUN 18, Creatinine 0.55 L, Estim Creat Clear Calc 77.39, Est GFR (MDRD) Af Amer 192, Est GFR (MDRD) Non-Af 159, BUN/Creatinine Ratio 32.8 H, Glucose 102, Calcium 6.8 L 10/21/21 03:30: Lactate Dehydrogenase 159 10/21/21 06:45: PT 15.4 H, INR 1.3, APTT 26.6 10/21/21 09:55: Hgb 7.4 L, Hct 21.2 L 10/21/21 14:00: Hgb 6.9 L, Hct 21.0 L Radiography Diagnostic Testing: Radiology Impression Abdomen/Pelvis CTA 10/20/21 20:06 IMPRESSION: No evidence of acute intra-abdominal pathology. Mild colonic wall thickening suggested with no associated inflammatory changes. Note of probable surgical changes in the cecum. 4 cm hypodensity periphery right hepatic lobe too dense to represent a cyst on CT. Correlation with ultrasound is recommended. Otherwise normal appearance of the liver. 4 mm pulmonary nodule right middle lobe. Correlate with cancer risk and consider follow-up CT in 6-12 months. 12 mm hypodensity inferior pole right kidney too small to confidently characterize. This could be evaluated liver, on a right upper quadrant ultrasound. Significant prostate enlargement. Electronically Signed: Barron Stewart DO at 23:14 EDT , Abdomen Ultrasound 10/21/21 07:05 IMPRESSION: Hepatomegaly. 4.4 cm x 3.5 cm x 2 cm hypoechoic solid nodule in the right lobe of the liver corresponding to the CT findings. This is not a typical cyst. Electronically Signed: Anthony Elizondo MD at 10:17 EDT , Physical Exam Const alert, oriented x3, no apparent distress and well nourished Constitutional Narrative: Morbidly obese, white male, sitting up in bed, appears somewhat pale but comfortable at this time, currently hemodynamically stable but having intermittent bloody stool, at bedside General Appearance: cooperative, comfortable, well kempt and well developed Orientation / Consciousness: awake, oriented to person, oriented to place and oriented to time Exam Limitations: no limitations Nutritional Appearance: morbidly obese HEENT normocephalic, head/scalp atraumatic, hearing grossly normal bilaterally and moist oral mucous membranes HEENT Narrative: Mallampati 3, no thrush Eyes PERRL and EOMs intact bilaterally Eyes Narrative: Pale conjunctiva bilaterally, no scleral icterus Neck no lymphadenopathy, supple, no JVD and no carotid bruits Resp normal respiratory effort, no retractions, no use of accessory muscles and clear to auscultation bilaterally Auscultation: Negative for crackles, rales, rhonchi or wheezes Cardio regular rate, regular rhythm, S1 normal heart sound, S2 normal heart sound, no rub, no gallops, no clicks and no JVD; Negative for no murmurs Cardio Narrative: 2 out of 6 systolic murmur GI normal to inspection, nondistended, normoactive bowel sounds, soft to palpation, non-tender and non-distended Extremity no clubbing, cyanosis or edema Extremity Narrative: 2+ pedal pulses Skin no rashes or lesions noted, no wounds, skin turgor normal and no jaundice Skin Narrative: Pale Neuro oriented x3, CN's II-XII intact bilaterally, moves all extremities, no focal motor deficits and no sensory deficits noted Neuro Narrative: Mild generalized weakness Sensorium / Orientation: awake, alert, oriented to person, oriented to place and oriented to time Speech: speech normal Psych affect normal Psych Narrative: Pleasant and appropriately interactive Assessment & Plan Assessment/Plan (1) GI bleeding: QUALIFIERS: GI bleed type/associated pathology: unspecified gastrointestinal hemorrhage type Qualified Code(s): K92.2 - Gastrointestinal hemorrhage, unspecified PLAN: Likely etiology of GI bleed is in the small bowel. He will be transferred to an institution of higher care due to the fact that he needs an interventional radiologist or control valve technician that can perform deep enteroscopy to locate his GI bleeding source in his small bowel. Charges/Coding Visit Charges Inpatient E&M: 75019 [facility] L1
--- NOTE | 2021-10-21 12:21 | CASEMGMT ---
Tertiary facilities in-network with patient's insurance: [facility] Anand, [facility] Pina, [facility], [facility], , RUSLAN Newman
[2021-10-21 14:09] LABS: Hemoglobin 6.9 g/dL (13.0-16.5)
--- NOTE | 2021-10-21 15:10 | DS.PCM_ITS ---
Providers Date of Admission: 10/20/21 Date of Discharge: 10/21/21 Primary Care Physician: Anna Primary Care Phys Consultations 10/20/21 05:34 Consult: Gastroenterology Routine Consulting Provider: Ellis Chris Reason for Consult: ablmaribeth EMERGENT Consult: No MD Notified: Yes Date Notified: 10/20/21 Time Notified: 07:31 Method of Notification: Text Reason For Visit: ACUTE LOWER GI BLEED Diagnosis Discharge Diagnosis (1) GI bleeding: Status: Acute Code(s): K92.2 - Gastrointestinal hemorrhage, unspecified Qualifiers: GI bleed type/associated pathology: unspecified gastrointestinal hemorrhage type Qualified Code(s): K92.2 - Gastrointestinal hemorrhage, unspecified Medications at Discharge Home Medications NK 10/20/21 Hospital Course Operations None Procedures Blood transfusion (6 units) and Colonoscopy Summary of Care Provided Minutes Spent on Discharge: 39 Hospital Course: Mr. Major is a 66-year-old white male who presented to the emergency department [facility] early in the morning on 10/20/2021 with bright red blood per rectum. The patient was admitted here 10/18/2021 through 10/19/2021 for similar symptoms at which time an EGD and colonoscopy was performed. EGD was negative for any signs of bleeding or significant abnormalities. His colonoscopy showed many small mouth diverticuli in the rectosigmoid colon as well as the descending colon. 10 sessile polyps were found in the sigmoid colon, splenic flexure, and ascending colon that were 1 to 2 mm in size. These polyps were all removed with hot snare and 3 medium sized angiodysplastic lesions were bleeding in the sigmoid colon. Coagulation was utilized for hemostasis using heater probe successfully. Follow-up hemoglobins were stable and he was discharged home but unfortunately developed recurrent bleeding and his hemoglobin was found to be down from 7.0 on discharge to 6.1. He was transfused 2 units of packed red blood cells and his hemoglobin only improved to 6.4. I did discuss the case with gastroenterology and they felt that this was equilibration initially. He was given 2 more units of packed red blood cells at that time with a repeat hemoglobin following to be 7.0. He unfortunately developed recurrent loose bowel movements that were bright red in nature on the evening of 10/20/2021 and he was taken for emergent colonoscopy. Colonoscopy at this time showed blood through the entire colon. The 10 polypectomy sites showed no stigmata of bleeding and clips were placed there for good measure. The terminal ileum was intubated and blood was noted in the terminal ileum continuously as far as the scope could reach which was approximately 20 cm. A few 5 mm ulcers were found in the ascending colon but no bleeding was noted. Hemostatic clips were placed on these ulcers to prevent postintervention bleeding and the scope was removed. There was significant concern that his bleeding was likely small bowel related and a CTA was performed to see if we could identify the location of bleeding. Every 6 hemoglobins were followed and noted for stability. As noted the CTA showed no signs of bleeding however it did show mild colonic wall thickening, a 4 cm hypodense periphery right hepatic lobe lesion, a 4 mm pulmonary nodule in the right middle lobe and a 12 mm hypodense inferior pole of the right kidney that was too small to confidently characterize. Prostate was also noted to be significantly enlarged. He is a non-smoker therefore his pulmonary nodule not need to be followed up. His liver hypodensity was evaluated with an ultrasound. The ultrasound showed hepatomegaly with hepatic steatosis as well as a 4.4 cm x 3.5 cm x 2cm lesion that appeared to be hypoechoic and was not characterized as a typical cyst. I did discuss with the patient and this will likely need biopsied. It is on the periphery of the liver and appears to be fully accessible for CT-guided biopsy however I did discuss with him we needed to get his bleeding taken care of first. I was called with further bright red blood per rectum on the afternoon of 10/21/2021 and a repeat hemoglobin was obtained and found to drop to 6.9. His platelets had also dropped this morning but his coags are normal so I suspect consumptive platelet drop. LDH was obtained and found to be 159 which is within normal limits. With blood products given his calcium was noted to be low and he was therefore given 2 g of calcium gluconate as well. Given the drop in hemoglobin and ongoing bleeding, he was transfused 2 more units of packed red blood cells. I discussed the case further with gastroenterology and they feel that he will likely need interventional radiology and that we will need to transfer the patient. The patient was accepted for transfer at [facility] on 10/21/2021. Discharge diagnoses: Acute GI bleed-suspected small bowel Acute anemia Thrombocytopenia-suspect consumptive Intermittent tachycardia Intermittent hypotension Liver mass--> will need work-up after GI issues are stabilized 4 mm lung nodule in a non-smoker--> no further work-up needed at the time Hepatic steatosis Angiodysplastic lesions of the colon Colon polyps Enlarged prostate Morbid obesity History of peptic ulcer disease History of hypertension Physical Exam Const alert, oriented x3, no apparent distress and well nourished Constitutional Narrative: Morbidly obese, white male, sitting up in bed, appears somewhat pale but comfortable at this time, currently hemodynamically stable but having intermittent bloody stool, at bedside General Appearance: cooperative, comfortable, well kempt and well developed Orientation / Consciousness: awake, oriented to person, oriented to place and oriented to time Exam Limitations: no limitations Nutritional Appearance: morbidly obese HEENT normocephalic, head/scalp atraumatic, hearing grossly normal bilaterally and moist oral mucous membranes HEENT Narrative: Mallampati 3, no thrush Eyes PERRL and EOMs intact bilaterally Eyes Narrative: Pale conjunctiva bilaterally, no scleral icterus Neck no lymphadenopathy, supple, no JVD and no carotid bruits Resp normal respiratory effort, no retractions, no use of accessory muscles and clear to auscultation bilaterally Auscultation: Negative for crackles, rales, rhonchi or wheezes Cardio regular rate, regular rhythm, S1 normal heart sound, S2 normal heart sound, no rub, no gallops, no clicks and no JVD; Negative for no murmurs Cardio Narrative: 2 out of 6 systolic murmur GI normal to inspection, nondistended, normoactive bowel sounds, soft to palpation, non-tender and non-distended Extremity no clubbing, cyanosis or edema Extremity Narrative: 2+ pedal pulses Skin no rashes or lesions noted, no wounds, skin turgor normal and no jaundice Skin Narrative: Pale Neuro oriented x3, CN's II-XII intact bilaterally, moves all extremities, no focal motor deficits and no sensory deficits noted Neuro Narrative: Mild generalized weakness Sensorium / Orientation: awake, alert, oriented to person, oriented to place and oriented to time Speech: speech normal Psych affect normal Psych Narrative: Pleasant and appropriately interactive Weight / BMI Weight Weight: 135.5 kg Body Mass Index (BMI) 41.4 ABG / Lab / Microbiology Data Result Diagrams: 10/21/21 14:00 10/21/21 03:30 Laboratory: Laboratory Results - last 24 hr 10/20/21 02:50: Crossmatch See Detail 10/20/21 02:50: Crossmatch See Detail 10/20/21 02:50: Crossmatch See Detail 10/20/21 16:20: Hgb 7.0 L, Hct 21.3 L 10/21/21 03:30: WBC 9.7, RBC 2.63 L, Hgb 7.9 L, Hct 24.2 L, MCV 92.0, MCH 30.0, MCHC 32.6, RDW Std Deviation 48.6 H, RDW Coeff of [place] 15.0 H, Plt Count 46 L*, MPV 9.9, Immature Gran % (Auto) 2.600 H, Neut % (Auto) 60.4, Lymph % (Auto) 27.7, [place] % (Auto) 7.7, Eos % (Auto) 1.4, Baso % (Auto) 0.2, Absolute Neuts (auto) 5.9, Absolute Lymphs (auto) 2.68, Nucleated RBC % 2.8, Diff Path Review May , Platelet Estimate MKD DEC, Polychromasia 2+, Anisocytosis 1+ 10/21/21 03:30: Sodium 145, Potassium 3.5, Chloride 120 H, Carbon Dioxide 19.0 L , Anion Gap 6, BUN 18, Creatinine 0.55 L, Estim Creat Clear Calc 77.39, Est GFR (MDRD) Af Amer 192, Est GFR (MDRD) Non-Af 159, BUN/Creatinine Ratio 32.8 H, Glucose 102, Calcium 6.8 L 10/21/21 03:30: Lactate Dehydrogenase 159 10/21/21 06:45: PT 15.4 H, INR 1.3, APTT 26.6 10/21/21 09:55: Hgb 7.4 L, Hct 21.2 L 10/21/21 14:00: Hgb 6.9 L, Hct 21.0 L Radiography Diagnostic Testing: Radiology Impression Abdomen/Pelvis CTA 10/20/21 20:06 IMPRESSION: No evidence of acute intra-abdominal pathology. Mild colonic wall thickening suggested with no associated inflammatory changes. Note of probable surgical changes in the cecum. 4 cm hypodensity periphery right hepatic lobe too dense to represent a cyst on CT. Correlation with ultrasound is recommended. Otherwise normal appearance of the liver. 4 mm pulmonary nodule right middle lobe. Correlate with cancer risk and consider follow-up CT in 6-12 months. 12 mm hypodensity inferior pole right kidney too small to confidently characterize. This could be evaluated liver, on a right upper quadrant ultrasound. Significant prostate enlargement. Electronically Signed: Barron Stewart DO at 23:14 EDT , Abdomen Ultrasound 10/21/21 07:05 IMPRESSION: Hepatomegaly. 4.4 cm x 3.5 cm x 2 cm hypoechoic solid nodule in the right lobe of the liver corresponding to the CT findings. This is not a typical cyst. Electronically Signed: Anthony Elizondo MD at 10:17 EDT , Meaningful Use Info Meaningful Use Diagnoses (Choose all that apply): None applicable Discharge Plan Admission Admit Date/Time: 10/20/21 04:38 Primary Reason for Your Visit: Bright red blood per rectum Attending Provider: Sharon Enrique Primary Care Provider: Care Physician,No Primary Consulting Providers: Brain Barboza ; lElis Chris Discharge Orders/Prescriptions Prescriptions: No Action NK Referrals / Follow Up: Care Physician,No Primary [Primary Care Provider] - Disposition Disposition (needs filled in before D/C Order can be placed): Acute Care Hospital Charges/Coding Visit Charges Inpatient E&M: 87829 [facility] H[facility]
--- NOTE | 2021-10-21 16:49 | NURSING ---
c/o LT hand swelling and pain/tightness worsening t/o the day. No IVs to left arm. No redness or open areas noted. + non-pitting edema. Elevated on pillows and ice applied per pt request. Will continue to monitor.
[2021-10-21] MEDS: HYDROmorphone 1 MG/ML Syringe IV (18:09)
--- NOTE | 2021-10-21 19:00 | NURSING ---
Report called to Jj NORIEGA at [facility] ([phone])
--- NOTE | 2021-10-21 19:30 | NURSING ---
Attempted to draw ordered H/H via [facility], unsuccessful. Lab notified of test urgency and requested a phleb tech to obtain H/H.
[2021-10-22 09:13] LABS: Pathologist Review Reviewed
== END 2021-10-21 20:02 | disposition short-term general hospital (02) | DRG 378 ==
LOC: ED 03:33 → ICU 05:07
PROVIDERS: Internal Medicine Gastroenterology; Admitting Provider Hospitalist; Emergency Provider Emergency Medicine; Visit Provider Internal Medicine
PROC: 0DJD8ZZ Inspection of Lower Intestinal Tract, Via Natural or Artificial Opening Endoscopic (ICD-10-PCS; CPT 45378; principal; 2021-10-20 18:00)
DX: K92.2 Gastrointestinal hemorrhage, unspecified (principal); D62 Acute posthemorrhagic anemia; K63.3 Ulcer of intestine; Z68.41 Body mass index [BMI] 40.0-44.9, adult; D69.6 Thrombocytopenia, unspecified; E66.01 Morbid (severe) obesity due to excess calories; K76.0 Fatty (change of) liver, not elsewhere classified; E87.6 Hypokalemia; I10 Essential (primary) hypertension; K44.9 Diaphragmatic hernia without obstruction or gangrene; I95.1 Orthostatic hypotension; N40.0 Benign prostatic hyperplasia without lower urinary tract symptoms; Z87.11 Personal history of peptic ulcer disease
CPT/HCPCS: 74174; 76705; 80048; 83615; 85014; 85018; 85025; 85610; 85730; 86850; 86900; 86901; 86920; 86922; 88305; 97802; 99285; J7030; P9016; Q9967; A4216; J0610

== ENCOUNTER → 2022-08-21 | Outpatient (CLI) | payer MEDICARE, SELFPAY ==
--- NOTE | 2022-08-21 07:05 | CT_ITS ---
EXAM: CT ABDOMEN AND PELVIS WITH INTRAVENOUS CONTRAST CLINICAL INDICATION: Neoplasm of uncertain behavior of left kidney TECHNIQUE: Helically acquired images were obtained of the abdomen and pelvis with intravenous contrast. This CT exam was performed using one or more of the following dose reduction techniques: automated exposure control, adjustment of the mA and/or kV according to patient size, and/or use of iterative reconstruction technique. CONTRAST: 100 cc of Isovue-300. RADIATION DOSE: CTDIvol = 17.01 mGy, DLP = 1290.79 mGy-cm COMPARISON: 10/20/2021. FINDINGS: LOWER THORAX: Unremarkable. No cardiomegaly. No significant pericardial effusion. No change in the 4 mm right middle lobe nodule. ABDOMEN: LIVER: Unremarkable. No change in the cyst in the right lobe of the liver. GALLBLADDER AND BILE DUCTS: Unremarkable. No calcified gallstones. No gallbladder distention or wall edema. No intra- or extrahepatic biliary ductal dilation. PANCREAS: Unremarkable. No focal cystic or solid mass. SPLEEN: Unremarkable. Normal size without focal cystic or solid mass. ADRENALS: Unremarkable. No nodules. KIDNEYS AND URETERS: Small cysts right kidney. No interval change. Normal renal size and position. No hydronephrosis. STOMACH AND BOWEL: Unremarkable. No stomach or bowel distention. No focal inflammatory change. PELVIS: APPENDIX: No evidence of acute appendicitis. BLADDER: Slight dense material layering in the urinary bladder may be due to tiny stones or milk of calcium. REPRODUCTIVE: Prostate is enlarged measuring 6 cm. ABDOMEN and PELVIS: INTRAPERITONEAL SPACE: Unremarkable. No ascites or other fluid collection. No free air. BONES/JOINTS: Unremarkable. No suspicious lytic or blastic abnormality. SOFT TISSUES: Unremarkable. No discrete abdominal or pelvic wall hernia. VASCULATURE: Unremarkable. Abdominal aorta is non-dilated. LYMPH NODES: Unremarkable. No enlarged lymph nodes. CT/Abdomen/Pelvis W IV Cont ONLY IMPRESSION: 1. Small cysts right kidney. No interval change. No follow-up imaging necessary. Normal appendix. 2. No change in the 4 mm right middle lobe nodule. No follow-up necessary. 3. No change in the cyst in the right lobe of the liver. No follow-up necessary. 4. Prostate is enlarged measuring 6 cm. 5. Slight dense material layering in the urinary bladder may be due to tiny stones or milk of calcium. Electronically Signed: Barron Nettles MD at 5:09 EDT ,
[2022-08-21 07:42] LABS: CREATININE FINGERSTICK < 0.9 mg/dL (0.70-1.30); EGFR FINGERSTICK > 60.0000 mL/min (>60)
== END | disposition home or self-care (01) ==
LOC: CT 07:04
PROVIDERS: PCP Family Medicine; Referring Provider Urology; Visit Provider Urology
DX: D41.02 Neoplasm of uncertain behavior of left kidney (principal)
CPT/HCPCS: 74177; Q9967; A4216

== ENCOUNTER → 2022-11-05 | Outpatient (CLI) | payer MEDICARE, SELFPAY ==
[2022-11-05 15:19] LABS: Absolute Lymphocyte Count 1.57 X10^3/uL (0.83-4.51); Absolute Neutrophil Count 3.3 X10^3/uL (2.0-7.7); Basophil# 0.04 X10^3/uL; Basophil% 0.7 % (0-1); Eosinophil# 0.16 X10^3/uL; Eosinophils% 2.6 % (0-5); Hematocrit 40.5 % (40-54); Hemoglobin 13.4 g/dL (13.0-16.5); Lymphocyte # 1.57 X10^3/ul (0.83-4.51); Lymphocyte % 25.5 % (19-41); Mean Corp Hgb Conc 33.1 g/dL (32-36); Mean Corpuscular Hgb 29.8 pg (27.0-32.0); Mean Corpuscular Volume 90.2 fL (80-94); Mean Platelet Vol. 10.2 fl (6.2-12.0); Monocyte# 1.06 X10^3/uL; Monocyte% 17.2 % (0-10); NRBC Flagged by Analyzer 0 % (0-5); Neutrophil # 3.28 X10^3/uL (2.7-7.7); Neutrophil % 53.3 % (47-70); Platelet Count 197 K/mm3 (150-450); RBC Distribution Width SD 42.5 fl (35.1-43.9); Red Blood Count 4.49 M/mm3 (4.6-6.2); White Blood Count 6.2 K/mm3 (4.4-11.0)
[2022-11-05 15:50] LABS: ALB/GLOB Ratio 0.7 RATIO (0.9-2.4); AST(SGOT) 19 U/L (15-37); Alanine Aminotransfer ALT/SGPT 30 U/L (16-61); Albumin, Serum 3.6 g/dL (3.2-5.0); Alkaline Phosphatase 56 U/L (45-117); Anion Gap 7 (5-15); BUN 17 mg/dL (7-18); BUN/Creat Ratio 20.4 RATIO (10-20); Calcium,Total 9.3 mg/dL (8.5-10.1); Chloride 107 mmol/L (98-107); Cholesterol 161 mg/dL (200); Creatinine, Serum 0.84 mg/dL (0.70-1.30); EST Glomerular Filtration Rate 97 mL/min (>60); Est Glom Filt Rate - Afr Amer 118 mL/min (>60); Ferritin 142 ng/mL (26-388); Globulin 4.9 g/dL (2.2-4.2); Glucose 98 mg/dL (74-106); High Density Lipoprotein 42 mg/dL; Magnesium 2.1 mg/dL (1.6-2.6); Potassium 3.7 mmol/L (3.5-5.1); Protein, Total 8.5 g/dL (6.4-8.2); Sodium Level 139 mmol/L (136-145); Thyroid Stim Hormone (TSH) 2.39 uIU/mL (0.358-3.74); Triglycerides 191 mg/dL; Uric Acid 8.3 mg/dL (3.5-7.2); Very Low Density Lipoprotein 38 mg/dL (5-40)
[2022-11-05 16:54] LABS: Hemoglobin A1c 5.8 % (3.8-5.6)
== END | disposition home or self-care (01) ==
LOC: MFPLAB 12:23
PROVIDERS: PCP Family Medicine; Visit Provider Family Medicine
DX: M79.89 Other specified soft tissue disorders (principal)
CPT/HCPCS: 36415; 80053; 80061; 82728; 83036; 83735; 84443; 84550; 85025

== ENCOUNTER → 2023-09-02 | Outpatient (CLI) | payer MEDICARE, SELFPAY ==
--- NOTE | 2023-09-02 10:12 | RAD_ITS ---
STUDY: X-RAY - LEFT ELBOW REASON FOR EXAM: Male, 68 years old. Injury. Pain. TECHNIQUE: 3 view(s) of the elbow. COMPARISON: None. FINDINGS: Normal visualized humerus, radius and ulna. Normal radiocapitellar and ulnotrochlear articulations. Mild diffuse soft tissue swelling. RAD/Elbow min 3 Views IMPRESSION: Soft tissue swelling. No osseous abnormality. Electronically Signed: Justen Lyons MD at 10:47 EDT ,
== END | disposition home or self-care (01) ==
PROVIDERS: PCP Family Medicine; Referring Provider Family Medicine; Visit Provider Family Medicine
DX: M25.522 Pain in left elbow (principal)
CPT/HCPCS: 73080

== ENCOUNTER → 2023-09-15 | Outpatient (CLI) | payer MEDICARE, SELFPAY ==
--- NOTE | 2023-09-15 06:45 | CT_ITS ---
STUDY: CT ABDOMEN AND PELVIS WITH CONTRAST REASON FOR EXAM: Male, 68 years old. MASS F/U LEFT KIDNEY RADIATION DOSAGE (If Supplied By Facility): CTDIvol = ( 25.85 ) mGy, DLP = ( 3322.32 ) mGycm TECHNIQUE: Transaxial images were obtained from the dome of the diaphragm to the symphysis pubis with oral contrast. IV 100mL Isovue-370 was administered. Sagittal and coronal images were reconstructed. Individualized dose optimization techniques were used for this CT. COMPARISON: 08/21/2022 FINDINGS: The visualized lung bases are unremarkable. The visualized portions of the heart are within normal limits. Interval decrease in the size of the cyst in the lateral segment left lobe liver adjacent to falciform ligament from 4 cm diameter to 3 cm in diameter. Normal gallbladder and extrahepatic biliary system. Normal spleen. Normal pancreas. Normal bilateral adrenal glands. Multiple tiny right renal cysts. 1.5 cm exophytic round solid peripherally enhancing mass of the medial cortex of the upper bulb left kidney worrisome for renal cell carcinoma. No evidence of tumor thrombus within the left renal vein or inferior vena cava. No adjacent retroperitoneal lymphadenopathy. Tiny (1 to 2 mm) nonobstructing stone in the upper pole of left kidney. No hydronephrosis, ureteral stone or ureteral dilatation. Normal visualized stomach. Normal small intestine. Normal colon. The appendix is visualized and appears normal. Normal abdominal aorta. Normal inferior vena cava. Normal retroperitoneum. Small stone in the right side of the base of bladder. There are prostatic calcifications. Normal abdominal wall. Normal osseous structures. CT/Abdomen/Pelvis WITH Contrast IMPRESSION: 1. 1.5 cm exophytic round solid peripherally enhancing mass in the upper pole of the left kidney worrisome for renal cell carcinoma. 2. Tiny nonobstructing stone in the upper pole the left kidney. 3. Small stone in the right side of the base of the bladder. 4. Shrinking cyst in the left lobe of the liver. Electronically Signed: Ruben Pollard MD at 9:44 EDT ,
[2023-09-15 07:10] LABS: CREATININE FINGERSTICK < 1.0 mg/dL (0.70-1.30); EGFR FINGERSTICK > 60.0000 mL/min (>60)
== END | disposition home or self-care (01) ==
LOC: CT 06:43
PROVIDERS: PCP Family Medicine; Referring Provider Urology; Visit Provider Urology
DX: Z01.812 Encounter for preprocedural laboratory examination (principal); D41.02 Neoplasm of uncertain behavior of left kidney
CPT/HCPCS: 74177; Q9967

== ENCOUNTER 2023-11-09 09:00 | Outpatient (RCR) | payer MEDICARE, SELFPAY ==
--- NOTE | 2023-09-11 07:50 | HP.PTEVAL_ITS ---
Patient's Visit Information Visit Information Visit Information: JAYE JAMES is a 68 year old M referred to Physical Therapy by Jeannie Boggs MD with a diagnosis of L Elbow Pain. Date of Evaluation: 09/11/23 Physical Therapist: CESIA Benitez Visit Plan Frequency: 2x /Week Duration: 4 Weeks Plan: 2X/ week for 4 weeks for stretching of L tricep, Bicep/tricep strength, postural/scapular strength, RC strength, ice/heat/US if needed with HEP HEP: wall tricep stretch, orange T-band tricep extension ++Pt will be getting a script to look at his neck as it has been bothering him+++ Subjective Subjective: Pt reports that he had some cellulitis last year and took antibiotics for that. He was getting some new furniture and he was carrying it out the door and his elbow started to hurt him 3 weeks ago. recommended some PT due to inflammation. He is 90% better. He works from home. Pt is R handed. His R arm does not wake up in the morning. He does have some neck stiffness. He struggles using his L hand for dexterity purposes. 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 Balance/Special Test Scores Quick DASH Score: 15.0000 Goals Goal 1:: I HEP Goal Time Frame: 4-6 Weeks Goal 2:: Increase L elbow AROM without pain (at the time of the eval: R elbow flexion 142 and -4 L elbow flexion 130 and -9) Goal Time Frame: 4-6 Weeks Goal 3:: Increase L elbow extension strength(at the time of the eval: R bicep 18.9 and L 17.1 R tricep ext 15.6 and L 4.5 (increase pain)). Goal Time Frame: 4-6 Weeks Goal 4:: Return to full use of L elbow without pain or restriction Goal Time Frame: 4-6 Weeks Rehabilitation Potential Rehabilitation Potential: Good Anticipated Interventions Patient/Client Instruction: Educate patient on: Condition and Plan of Care For the Purpose of:: To decrease pain, To increase ROM, To improve nutrient delivery to tissue, To improve muscle performance and motor function, To improve ability to perform ADL's, To increase tolerance to activity/condition/position, To improve performance and independence with ADL's, To improve health of tissue, To decrease soft tissue restriction and To increase flexibility/ROM Therapeutic Exercise to Include: Strength training, Postural training, Flexibilty training, Neuromotor development, Active ROM and Scapular Strength/Stabilization For the Purpose of:: To decrease pain, To increase ROM, To improve nutrient delivery to tissue, To improve muscle performance and motor function, To improve performance and independence with ADL's, To decrease level of supervision to perform tasks, To improve health of tissue, To decrease soft tissue restriction and To increase flexibility/ROM Manual Therapy Techniques to Include: Passive ROM and Soft tissue mobilization For the Purpose of:: To decrease pain, To decrease swelling/inflammation, To increase ROM, To improve health of tissue, To decrease soft tissue restriction and To increase flexibility/ROM Cryotherapy (ice pack, ice massage): Yes Thermo therapy (hot pack): Yes Ultrasound (thermal/non thermal): Yes For the Purpose of:: To decrease pain, To decrease swelling/inflammation, To increase ROM and To improve nutrient delivery to tissue Text: Thank you for the opportunity to evaluate your patient. For Medicare and Medicare HMO plans, please review the plan of care and approve it. It will need to be FAXED BACK to us at [phone] for Medicare purposes. For Medicare only, by signing this I certify the plan of care. Please let me know if there are questions or concerns regarding this plan of care. Physician Signature: Date:
--- NOTE | 2023-09-30 12:59 | HP.PTREVAL_ITS ---
Re-Evaluation Intro: Jeannie Boggs MD, It has been my pleasure to treat JAYE JAMES over the last 4 visits for L Elbow Pain. Please see the progress note below for an update on the physical therapy plan of care! Subjective Subjective: Pt reports that his elbow is feeling better. No pain this morning. He is not doing exercises as often as he should. He has no neck pain but the tips of his fingers are numb. The Dr checked his circulation and it was fine. He struggles with screwing a small screw in with his L hand. He props up his L arm on a pillow to help him sleep at night. 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 Tight anterior chest wall as well Plan Plan Plan: Add neck tx to POC. Work on anterior chest stretches, neck stretches, manual or mechanical traction, scapular and postural exercises. 2X/ week for 4 weeks for stretching of L tricep, Bicep/tricep strength, postural/scapular strength, RC strength, ice/heat/US if needed with HEP HEP: wall tricep stretch, orange T-band tricep extension ++Pt will be getting a script to look at his neck as it has been bothering him+++ Balance/Gait/Functional tests Balance/Special Test Scores Quick DASH Score: 15.0000 Goals Goals Goal 1:: I HEP Goal Time Frame: 4-6 Weeks Goal 2:: Increase L elbow AROM without pain (at the time of the eval: R elbow flexion 142 and -4 L elbow flexion 130 and -9) Goal Time Frame: 4-6 Weeks Goal 3:: Increase L elbow extension strength(at the time of the eval: R bicep 18.9 and L 17.1 R tricep ext 15.6 and L 4.5 (increase pain)). Goal Time Frame: 4-6 Weeks Goal 4:: Return to full use of L elbow without pain or restriction Goal Time Frame: 4-6 Weeks Goal 5:: Increase C-spine AROM: (at the time of the eval: Neck AROM: flex 100%, Ext 10%, Rot B 50%, SB B 50%). Goal Time Frame: 4-6 Weeks Goal 6:: Sit with upright posture during treatment sessions Anticipated Interventions Anticipated Interventions Patient/Client Instruction: Educate patient on: Condition and Plan of Care For the Purpose of:: To decrease pain, To increase ROM, To improve nutrient delivery to tissue, To improve muscle performance and motor function, To improve ability to perform ADL's, To increase tolerance to activity/condition/position, To improve performance and independence with ADL's, To improve health of tissue, To decrease soft tissue restriction and To increase flexibility/ROM Therapeutic Exercise to Include: Strength training, Postural training, Flexibilty training, Neuromotor development, Active ROM and Scapular Strengt h/Stabilization For the Purpose of:: To decrease pain, To increase ROM, To improve nutrient delivery to tissue, To improve muscle performance and motor function, To improve performance and independence with ADL's, To decrease level of supervision to perform tasks, To improve health of tissue, To decrease soft tissue restriction and To increase flexibility/ROM Manual Therapy Techniques to Include: Passive ROM and Soft tissue mobilization For the Purpose of:: To decrease pain, To decrease swelling/inflammation, To increase ROM, To improve health of tissue, To decrease soft tissue restriction and To increase flexibility/ROM Cryotherapy (ice pack, ice massage): Yes Thermo therapy (hot pack): Yes Ultrasound (thermal/non thermal): Yes For the Purpose of:: To decrease pain, To decrease swelling/inflammation, To increase ROM and To improve nutrient delivery to tissue Re-Evaluation Ending Re-evaluation ending: Please do not hesitate to contact me at [phone] by phone or if you have questions or concerns regarding this new plan of care! Sincerely, Nichole Melchor, MPT
--- NOTE | 2023-11-09 09:54 | HP.PTDCSUM ---
Discharge Summary D/C summary: It has been my pleasure to treat JAYE JAMES referred by Jeannie Boggs MD, with the diagnosis of L Elbow Pain for a total of 9 visit(s). Discharge Date: 11/09/23 Please see the following information for a summary of their discharge status. Subjective Subjective: His fingers still have numbness (thumb, index and middle finger). Pt will go back to and discuss next step. Pt elbow is 100 back to normal and his neck has more ROM but numbness is still present Pain L elbow pain: Pain Intensity (Out of 10): 0 neck pain: Pain Intensity (Out of 10): 0 Overall Improvement % Improvement: 80 Objective Objective/Function: Pt had increased ROM after treatment but still tingling in his finger. Neck AROM: flex 100%, Ext 10%, Rot B 75%, SB B 75%). Goals Goal 1:: I HEP Goal Progress: Goal Met Goal 2:: Increase L elbow AROM without pain (at the time of the eval: R elbow flexion 142 and -4 L elbow flexion 130 and -9) Goal Progress: Goal Met Goal 3:: Increase L elbow extension strength(at the time of the eval: R bicep 18.9 and L 17.1 R tricep ext 15.6 and L 4.5 (increase pain)). Goal 4:: Return to full use of L elbow without pain or restriction Goal Progress: Goal Met Goal 5:: Increase C-spine AROM: (at the time of the eval: Neck AROM: flex 100%, Ext 10%, Rot B 50%, SB B 50%). Goal 6:: Sit with upright posture during treatment sessions Goal Progress: Progressing Plan Plan: DC PT back to (possible L Carpal Tunnel since no improvement with neck therapy) D/C Information Discharge Comments: DC PT back to d/c sentence: If there are questions or concerns regarding this patient's physical therapy, please feel free to call me at [phone]. Thank you for the referral of this patient. Sincerely, Nichole Melchor, MPT Balance/Gait/Functional tests Balance/Special Test Scores Quick DASH Score: 15.9075 Improvement % Improvement: 80
== END 2023-11-09 19:00 | disposition home or self-care (01) ==
LOC: PT 09:00
PROVIDERS: PCP Family Medicine; Referring Provider Family Medicine; Visit Provider Family Medicine
DX: M25.522 Pain in left elbow (principal); M54.2 Cervicalgia; G89.29 Other chronic pain
CPT/HCPCS: 97012; 97110; 97161; 97530

== ENCOUNTER → 2024-10-14 | Outpatient (CLI) | payer MEDICARE, SELFPAY ==
--- NOTE | 2024-10-14 12:48 | CT_ITS ---
PROCEDURE: ABDOMEN/PELVIS W IV CONT ONLY 10/14/2024 REASON FOR EXAM: NEOPLASM OF UNCERTAIN BEHAVIOR OF LEFT KIDNEY TECHNIQUE: ABDOMEN/PELVIS W IV CONT ONLY Coronal and Sagittal reconstruction series were provided. CONTRAST: Isovue-300 VOLUME: 99 cc mL One or more dose reduction techniques were used (e.g., Automated exposure control, adjustment of the mA and/or kV according to patient size, use of iterative reconstruction technique. RADIATION DOSE SUMMARY: CTDlvol: 37 mGy DLP: 1389 mGycm COMPARISON: 09/15/2023 FINDINGS: Stable 19 x 20 mm nodule arising from the medial upper pole of the left kidney which was present previously without change in size. No adenopathy. Upper abdominal organs unremarkable. No free-fluid. No free air. No bowel obstruction. CT/Abdomen/Pelvis W IV Cont ONLY IMPRESSION: Stable left renal mass when compared to 09/15/2023 on routine imaging. This is not a dedicated renal study Reading Location: [facility]
[2024-10-14 13:15] LABS: CREATININE FINGERSTICK < 1.0 mg/dL (0.70-1.30); EGFR FINGERSTICK > 60.0000 mL/min (>60)
== END | disposition home or self-care (01) ==
LOC: CT 12:45
PROVIDERS: PCP Family Medicine; Referring Provider Urology; Visit Provider Urology
DX: Z01.812 Encounter for preprocedural laboratory examination (principal); D41.02 Neoplasm of uncertain behavior of left kidney
CPT/HCPCS: 74177; Q9967

== ENCOUNTER → 2024-12-01 | Outpatient (CLI) | payer MEDICARE, SELFPAY ==
[2024-12-01 12:30] LABS: Hematocrit 42.4 % (40-54); Hemoglobin 14.4 g/dL (13.0-16.5); Immature Granulocytes Count 0.030 X10^3/uL (0.0-0.0); Mean Corp Hgb Conc 34.0 g/dL (32-36); Mean Corpuscular Volume 88.5 fL (80-94); Mean Platelet Vol. 10.2 fl (6.2-12.0); NRBC Flagged by Analyzer 0 % (0-5); Platelet Count 242 K/mm3 (150-450); RBC Distribution Width CV 13.4 % (11.6-14.6); RBC Distribution Width SD 43.8 fl (35.1-43.9); Red Blood Count 4.79 M/mm3 (4.6-6.2); White Blood Count 7.1 K/mm3 (4.4-11.0)
[2024-12-01 12:53] LABS: AST(SGOT) 23 U/L (<=37); Alanine Aminotransfer ALT/SGPT 29 U/L (<=46); Albumin, Serum 4.3 g/dL (3.4-4.8); Alkaline Phosphatase 60 U/L (40-129); Anion Gap 14 (5-15); BUN 16 mg/dL (4-19); BUN/Creat Ratio 18.9 RATIO (10-20); Calcium,Total 10.1 mg/dL (7.6-11.0); Carbon Dioxide 24.2 mmol/L (21.0-32.0); Chloride 102 mmol/L (98-108); Cholesterol 185 mg/dL (<=200); Globulin 3.6 g/dL (2.2-4.2); Glucose 103 mg/dL (70-99); Low Density Lipoprotein Calc. 99 mg/dL; PSA,Total - Annual Screen 2.66 ng/mL (0.02-4.00); Potassium 4.1 mmol/L (3.3-5.1); Triglycerides 238 mg/dL; Very Low Density Lipoprotein 48 mg/dL (5-40); Vitamin D,25 Hydroxy 26.0 ng/mL (30-100); cholesterol:hdl ratio screen 4.81
== END | disposition home or self-care (01) ==
LOC: MFPLAB 09:21
PROVIDERS: PCP Family Medicine; Referring Provider Family Medicine; Visit Provider Family Medicine
DX: E78.9 Disorder of lipoprotein metabolism, unspecified (principal); Z12.5 Encounter for screening for malignant neoplasm of prostate; R73.03 Prediabetes; I10 Essential (primary) hypertension
CPT/HCPCS: 36415; 80053; 80061; 82306; 83036; 84153; 85025; G0103